=== PATIENT | male | born 1950 | race Caucasian/White ===

== ENCOUNTER 2017-09-29 14:01 | Inpatient (IN) ==
--- NOTE | 2017-09-29 14:14 | ED ---
HPI General Chief Complaint: Chest Pain Stated Complaint: Medical Time Seen by Provider: 09/29/17 14:07 Source: patient and EMS Mode of arrival: EMS Limitations: no limitations History of Present Illness HPI narrative: 66-year-old male patient with history of hypertension, CAD status post CABG, comes here from [place] currently at a [employer] race, started having chest pains about half an hour prior to arrival, states that he was 7 out of 10, but states that is now a 2 out of 10. He states is substernal, pressure, denies any nausea, shortness of breath, or other symptoms. Complete Quality Measures for STEMI Alert Patients Related Data Home Medications Medication Instructions Recorded Confirmed albiglutide [Tanzeum] 50 mg SUB-Q Q7D 09/29/17 09/29/17 aspirin 81 mg PO DAILY 09/29/17 09/29/17 insulin glargine [Toujeo Max 24 units SUB-Q DAILY 09/29/17 09/29/17 SoloStar] metoprolol tartrate 100 mg PO DAILY 09/29/17 09/29/17 pioglitazone 15 mg PO DAILY 09/29/17 09/29/17 Allergies Allergy/AdvReac Type Severity Reaction Status Date / Time No Known Allergies Allergy Unverified 09/29/17 14:08 Review of Systems Except as stated in HPI: all other systems reviewed are negative [facility] Medical History Medical History Coronary artery disease (Acute) Diabetes (Acute) High cholesterol (Acute) Surgical History Surgical History Coronary angioplasty status (Acute) Hx of cardiac cath (Acute) Social History Social History Substance History: No History of Abuse Second Hand Smoke Exposure: No Smoking Status: Never smoker Tobacco Type: Cigarettes How Often Do You Have a Drink Containing Alcohol: 2 to 4 times a month Recent Travel in [facility] within the Last 8 Weeks: No Recent Out of Country Travel within the Last 8 Weeks: No Immunization History Tetanus Immunization: <5 Years Hx Influenza Vaccine This Season: Yes Exam Narrative Exam Narrative: GENERAL: Well-developed elderly white male patient currently and moderate distress. Awake and oriented 3. SKIN: Focused skin assessment: Diaphoretic. HEAD: Atraumatic. Normocephalic. EYES: Pupils equal and round. No scleral icterus. No injection or drainage. ENT: No nasal bleeding or discharge. Mucous membranes pink and moist. NECK: Trachea midline. No JVD. Supple. CARDIOVASCULAR: Regular rate and rhythm. No murmur appreciated. RESPIRATORY: No accessory muscle use. Clear to auscultation. Breath sounds equal bilaterally. GASTROINTESTINAL: Abdomen soft, non-tender, nondistended. Hepatic and splenic margins not palpable. MUSCULOSKELETAL: No obvious deformities. No clubbing. No cyanosis. No edema. NEUROLOGICAL: Awake and alert. No obvious cranial nerve deficits. Motor grossly within normal limits. Normal speech. PSYCHIATRIC: Appropriate mood and affect; insight and judgment normal. Course Hospital Course: Initial EKG shows nonspecific ST elevations in the inferior leads concerning for an underlying cardiac issue, patient has extensive cardiac history. Case was discussed with Dr. Mckeon who saw the patient in the ER, patient's troponin initially was negative. His BUN and creatinine is quite elevated. He has no known history of kidney problems. At this point, Dr. Mckeon has suggested medical admission, started the patient on heparin, Plavix, patient has had aspirin and nitroglycerin as well as morphine in the ER. Case has been discussed with Dr. Seay for admission. Initial Documented Vital Signs Pulse Rate 83 09/29/17 14:02 Respiratory Rate 18 09/29/17 14:02 Blood Pressure 139/71 09/29/17 14:02 Pulse Oximetry 98 09/29/17 14:02 Last Documented Vital Signs Pulse Rate 59 L 09/29/17 15:59 Respiratory Rate 18 09/29/17 15:59 Blood Pressure 138/71 09/29/17 15:59 Pulse Oximetry 95 09/29/17 15:59 Medical Decision Making Differential Diagnosis Differential Diagnosis: ACS versus dehydration versus dysrhythmias versus electrolyte abnormalities Lab Data Result diagrams: 09/29/17 14:19 09/29/17 14:19 Lab Results 09/29/17 09/29/17 09/29/17 Range/Units 14:19 14:19 14:19 WBC 11.2 H (4.0-11.0) th/mm3 RBC 4.43 L (4.50-5.90) mil/mm3 Hgb 13.7 (13.0-17.0) gm/dL Hct 40.5 (39.0-51.0) % MCV 91.6 (80.0-100.0) fL MCH 30.9 (27.0-34.0) pg MCHC 33.8 (32.0-36.0) % RDW 13.4 (11.6-17.2) % Plt Count 283 (150-450) th/mm3 MPV 8.0 (7.0-11.0) fL Neut % (Auto) 79.5 H (16.0-70.0) % Lymph % (Auto) 11.3 (9.0-44.0) % Villalba % (Auto) 6.5 (0.0-8.0) % Eos % (Auto) 2.0 (0.0-4.0) % Baso % (Auto) 0.7 (0.0-2.0) % Neut # (Auto) 8.9 H (1.8-7.7) th/mm3 Lymph # (Auto) 1.3 (1.0-4.8) th/mm3 Villalba # (Auto) 0.7 (0.0-0.9) th/mm3 Eos # (Auto) 0.2 (0.0-0.4) th/mm3 Baso # (Auto) 0.1 (0.0-0.2) th/mm3 WBC Differential . Differential Comment Auto diff final PT 11.3 (9.8-11.6) sec INR 1.1 Ratio APTT 21.1 L (24.3-30.1) sec Sodium 139 (136-145) meq/L Potassium 4.5 (3.5-5.1) meq/L Chloride 101 (98-107) meq/L Carbon Dioxide 29.4 (21.0-32.0) meq/L Anion Gap 9 (5-15) meq/L BUN 45 H (7-18) mg/dL Creatinine 2.64 H (0.60-1.30) mg/dL Estimated GFR 24 L (>89) mL/min Random Glucose 249 H (74-106) mg/dL Calcium 9.6 (8.5-10.1) mg/dL Total Bilirubin 0.3 (0.2-1.0) mg/dL AST 21 (15-37) U/L ALT 31 (12-78) U/L Alkaline Phosphatase 67 (45-117) U/L Troponin I Less than 0.02 L (0.02-0.05) ng/mL Total Protein 7.5 (6.4-8.2) g/dL Albumin 4.2 (3.4-5.0) g/dL Imaging Data Radiologist's impression: Chest X-Ray 09/29/17 14:11 CONCLUSION: No acute cardiopulmonary disease. Discharge Plan Discharge Disposition Patient Disposition: 30 Still Patient Discharge Condition Condition: Good Discharge Details Anticipated Discharge Date: 09/29/17 Diagnosis: Unstable angina pectoris Physicians Team ED Provider: David Humphrey Primary Care Provider: Primary Care Maria Del Rosario Mcgowan Rxs /Orders / Referrals /Forms Prescriptions: Continue aspirin 81 mg Tablet,Chewable 81 mg PO DAILY RF: 0 Discontinued losartan-hydrochlorothiazide 100-25 mg Tablet 1 tab PO DAILY RF: 0 metformin 1,000 mg Tablet Extended Release 24hr 1,000 mg PO BID RF: 0 No Action pioglitazone 15 mg Tablet 15 mg PO DAILY RF: 0 metoprolol tartrate 100 mg Tablet 100 mg PO DAILY RF: 0 albiglutide [Tanzeum] 50 mg/0.5 mL Pen Injector 50 mg SUB-Q Q7D RF: 0 insulin glargine [Toujeo Max SoloStar] 300 unit/mL (3 mL) Insulin Pen 24 units Sub-Q DAILY RF: 0 Discharge Instructions Patient Printed Instructions: Chest Pain (ED), Heart Catheterization (DC) Discharge Interventions Interventions: Vital Signs Last Done: 09/29/17 14:07 Status ED Status: Admitted Patient
[2017-09-29 14:33] LABS: Baso # (Auto) 0.1 th/mm3 (0.0-0.2); Baso % (Auto) 0.7 % (0.0-2.0); Eos # (Auto) 0.2 th/mm3 (0.0-0.4); Hematocrit 40.5 % (39.0-51.0); Hemoglobin 13.7 gm/dL (13.0-17.0); Lymph # (Auto) 1.3 th/mm3 (1.0-4.8); Lymph % (Auto) 11.3 % (9.0-44.0); Mean Corpuscular HGB Conc 33.8 % (32.0-36.0); Mean Corpuscular Hemoglobin 30.9 pg (27.0-34.0); Mean Corpuscular Volume 91.6 fL (80.0-100.0); Mono # (Auto) 0.7 th/mm3 (0.0-0.9); Mono % (Auto) 6.5 % (0.0-8.0); Neut # (Auto) 8.9 th/mm3 (1.8-7.7); Neut % (Auto) 79.5 % (16.0-70.0); Platelet Count 283 th/mm3 (150-450); Red Blood Count 4.43 mil/mm3 (4.50-5.90); Red Cell Distribution Width 13.4 % (11.6-17.2); White Blood Count 11.2 th/mm3 (4.0-11.0)
[2017-09-29] MEDS ORDERED: Morphine Inj 4 MG/ML Vial IV.PUSH ONE (14:50)
[2017-09-29 14:51] LABS: Activated Partial Thrombo Time 21.1 sec (24.3-30.1); INR 1.1 Ratio; Prothrombin Time 11.3 sec (9.8-11.6)
[2017-09-29 14:52] LABS: Alanine Aminotransferase 31 U/L (12-78); Albumin 4.2 g/dL (3.4-5.0); Anion Gap 9 meq/L (5-15); Aspartate Aminotransferase 21 U/L (15-37); Blood Urea Nitrogen 45 mg/dL (7-18); Calcium 9.6 mg/dL (8.5-10.1); Carbon Dioxide 29.4 meq/L (21.0-32.0); Chloride 101 meq/L (98-107); Glomerular Filtration Rate 24 mL/min (>89); Glucose,Random 249 mg/dL (74-106); Potassium 4.5 meq/L (3.5-5.1); Sodium 139 meq/L (136-145)
[2017-09-29 14:56] LABS: Alkaline Phosphatase 67 U/L (45-117); Total Protein 7.5 g/dL (6.4-8.2)
--- NOTE | 2017-09-29 14:59 | XR ---
EXAM DATE: 09/29/2017 2:34 PM EDT AGE/SEX: 66 years / Male INDICATIONS: Midline chest pain. CLINICAL DATA: This is the patient's initial encounter. Patient reports that signs and symptoms have been present for 1 day and indicates a pain score of 4/10. MEDICAL/SURGICAL HISTORY: None. CABG. Cardiac stents. COMPARISON: POI, XR CHEST PA AND LAT, 12/05/2016. . FINDINGS: A single AP view of the chest demonstrates the lungs to be symmetrically aerated without evidence of mass, infiltrate or effusion. The cardiomediastinal contours are unremarkable. Osseous structures a re intact. The patient is again noted be status post median sternotomy for bypass grafting procedure . CONCLUSION: No acute cardiopulmonary disease. Electronically signed by: Sarath Grayson MD 09/29/2017 2:58 PM EDT
[2017-09-29] MEDS ORDERED: Heparin 10,000 UNITS/10 ML Vial (for IV use) ONE (15:45)
[2017-09-29] MEDS ORDERED: Heparin 10,000 UNITS/10 ML Vial (for IV use) IV.PUSH STA (15:49)
--- NOTE | 2017-09-29 15:52 | MB ---
cc: Jarrett Mckeon MD DATE: 09/29/2017 INDICATION FOR CONSULTATION: Unstable angina. HISTORY OF PRESENT ILLNESS: This is a very nice 66-year-old gentleman who has a history of known coronary disease, prior 5-vessel bypass and multiple prior percutaneous interventions. He is visiting here from [place] for the [employer] race. He said he ate lunch, walked up a flight of stairs and then felt diaphoretic and a little bit dizzy. Developed a substernal chest pain rated about a 7/10 initially, but now down to maybe 1 or 2/10. Describes it as more of a broad sternal discomfort. He does not state that it is sharp or dull. It is not a pressure-like sensation, but he was diaphoretic and nauseous. Electrocardiogram did show some [address] elevation inferiorly. He apparently saw his primary care doctor not too long ago and states that he had a basic metabolic panel, at which time they his kidneys were mildly abnormal, but not severely so. He still has just a little bit of chest pain now, but looks much more comfortable than initially described. PAST MEDICAL HISTORY: Coronary artery disease with bypass surgery as mentioned above, diabetes, hyperlipidemia. PAST SURGICAL HISTORY: Multiple cardiac catheterizations and bypass. SOCIAL HISTORY: Remote tobacco use, remote alcohol use. FAMILY HISTORY: He denies any family history of early coronary disease or sudden cardiac . REVIEW OF SYSTEMS: A 12-point review of systems was performed, negative unless otherwise noted in history of present illness. PHYSICAL EXAMINATION: VITAL SIGNS: Pulse 83, blood pressure 139/71 mmHg. GENERAL: Alert and oriented x 3, in no acute distress. HEENT: Shows pupils reactive to light and accommodation. Extraocular movements intact. No elevation jugular venous distention. No thyromegaly. No lymphadenopathy. No carotid bruits. LUNGS: Clear to auscultation bilaterally. CARDIOVASCULAR: Regular rate and rhythm without murmurs, rubs or gallops. ABDOMEN: Nontender and nondistended with good bowel sounds. No hepatosplenomegaly. EXTREMITIES: Show no clubbing, cyanosis or edema. Good peripheral pulses. NEUROLOGIC: Cranial nerves intact. Motor and sensory grossly intact. LABORATORY DATA: WBC 11.2, hemoglobin is 13.7, platelet count is 283. INR is 1.1. Sodium 139, potassium 4.5, BUN 45, creatinine is 2.64. Troponins less than 0.02. ELECTROCARDIOGRAM: Sinus rhythm, [address] elevation inferiorly, otherwise no significant ischemic changes. ASSESSMENT: 1. Unstable angina. 2. History of coronary artery disease with bypass surgery. 3. Acute renal failure. 4. Diabetes. PLAN: The patient's symptoms are resolving. His initial troponin is negative. Electrocardiogram does not meet criteria for ST elevation myocardial infarction protocol. I had a lengthy discussion with the patient about potential options in consideration. Given his current status of his creatinine with the kidney function and the fact that he has unknown anatomy with 5 coronary bypass grafts and possible percutaneous intervention, the amount of contrast that would be necessary would likely exceed that of which he has kidneys would tolerate and he would ultimately end up on either short-term and potentially long-term dialysis. Obviously, he was not very interested in this potential outcome. What I explained to him is if his symptoms are improving, let us go ahead and try to anticoagulate him, get him on aspirin, get him on Plavix and a statin with beta tomasa therapy. He has got nitro paste already on. We will hold angiotensin converting enzyme inhibitor or angiotensin receptor tomasa due to his kidney function. He seems to be fairly well compensated right now from a cardiovascular perspective and hemodynamically stable. Hold any diuretics. May actually gently hydrate him and see how the kidneys do. We will strongly consider actually getting Nephrology involved since he said his kidneys were recently within normal limits and the potential that we may need to do a cardiac catheterization early next week, we really would like to see him optimized the best that we can. Lastly, I will get a 2D echocardiogram to evaluate LV function and valvular heart disease. If he rules out and no other high risk features, we may actually consider a stress test to determine severity and amount of ischemia before proceeding with any invasive strategy if his kidneys do not improve. MD GLORIA Kumar/MONA , 03:22 PM , 03:34 PM
[2017-09-29] MEDS: Heparin Drip 25,000 UNIT/250 ML BAG IV.CONT PRN (15:53)
[2017-09-29] MEDS ORDERED: Bisacodyl 10 MG Supp RECTAL PRN (16:07)
[2017-09-29] MEDS ORDERED: Dextrose 50% in Water 50 ML Vial IV.PUSH PRN (16:10)
[2017-09-29] MEDS ORDERED: Naloxone Inj 0.4 MG/ML Vial IV.PUSH PRN (16:27)
[2017-09-29] MEDS ORDERED: Morphine Inj 4 MG/ML Vial IV.PUSH PRN ×2 (16:27)
[2017-09-29] MEDS: Sodium Chloride 0.45 % Inj 1,000 ML IV.CONT SCH (18:01)
--- NOTE | 2017-09-29 18:19 | P.HP ---
History of Present Illness Service: [facility] Primary Care Physician: No Primary Care Physician Chief Complaint: Chest pain History of Present Illness: 66-year-old male with PMH significant for HTN, HLD, DM, CAD s/p CABG x5 vessels, and stenting who presents to the ER via [facility] with complaints of chest pain. Patient reports that he was working out on [place] earlier today when he began experiencing chest pain. Patient states that pain was located on the center of his chest nonradiating, rates it an 8/10, describes the pain as stabbing, he also experienced diaphoresis. He then when inside the building to cool off, however pain did not improved and [facility] was called. He was not given any nitro in rout as he was told his BP was too low. In [facility] patient also had nausea and vomited once. While in the ER he again had one episode of emesis. EKD done in the ER revealed nonspecific ST elevations in the inferior leads. Initial troponin was negative, hemodynamically stable on arrival with negative chest x-ray. His CMP did reveal an elevated BUN and creatinine at 2.64. Patient states that he recently moved to [place] from [place] about one year ago and has not established with a chestnut tanner. He does followup with [facility] as his primary and about 6 weeks ago was told that he had abnormal kidney function and had to stop taking Ibuprofen due to his kidneys. At the time of my examination patient is awake and alert and appears to be in no acute distress. He still continues to complain of mid- sternal chest pain and currently rates pain 8/10, nonradiating. He denies any additional nausea or vomiting, denies any SOB, cough, dizziness or lightheadedness. - Diagnosis (1) Unstable angina pectoris (2) JULIA (acute kidney injury) (3) CKD (chronic kidney disease) Inpatient Certification: I certify that the inpatient services were ordered in accordance with Medicare regulations governing the order. This includes certification that hospital inpatient services are reasonable and necessary and in the case of services not specified as inpatient-only under 42 CFR 419.22(n), that they are appropriately provided as inpatient services in accordance to with the 2-midnight benchmark under 43 CFR 412.3(e) Estimated Total Length of Stay (Days): 2 Plans for Post Hospital Care: Home [facility] - History History Provided By: Patient - Medical History Medical History: Medical History (Last Updated 09/29/17 @ 17:59 by Oziel Mcghee) Coronary artery disease Diabetes HTN (hypertension) High cholesterol Renal insufficiency - Surgical History Surgical History: Surgical History (Last Updated 09/29/17 @ 18:00 by Oziel Mcghee) Coronary angioplasty status H/O hernia repair Hx of cardiac cath Hx of tonsillectomy - Family History Family History: Family History (Last Updated 09/29/17 @ 18:01 by Oziel Mcghee) Other Family history of cardiac disorder - Tobacco History Second Hand Smoke Exposure: No Tobacco Use In Past 30 Days: No Smoking Status: Never smoker - Alcohol History How Often Do You Have a Drink Containing Alcohol: 2 to 4 times a month - Substance Use History Substance History: No History of Abuse - Travel History History of Recent Travel: No Recent Travel in the [place] Within the Last 8 Weeks: No Recent Travel Out of the Country Within the Last 8 Weeks: No - Immunization History Tetanus Immunization: <5 Years Hx Influenza Vaccine This Season: Yes Medications and Allergies Active Medications: Active Medications Al Hydroxide/Mg Hydroxide (Milk Of Magnesia Liq) 30 ml PO Q12H PRN PRN Reason: Mild Constipation Aspirin (Ecotrin) 81 mg PO DAILY LESLIE Bisacodyl (Dulcolax Supp) 10 mg RECTAL DAILY PRN PRN Reason: SEVERE CONSITIPATION Clopidogrel Bisulfate (Plavix) 75 mg PO DAILY LESLIE Dextrose (D50w Vial) 50 ml IV.PUSH UNSCH PRN PRN Reason: PER HYPOGLYCEMIA PROTOCOL Glucagon (Glucagon Inj) 1 mg OTHER PRN PRN PRN Reason: for Hypoglycemia Protocol Heparin Sodium/Dextrose (Heparin/D5w 25,000 U/250 Ml) 25,000 unit in 250 mls @ 10 mls/hr IV.CONT TITRATE PRN; Protocol PRN Reason: Per Protocol Last Admin: 09/29/17 15:53 Dose: 1,000 units/hr, 10 mls/hr Sodium Chloride (1/2 Normal Saline Inj) 1,000 mls @ 50 mls/hr IV.CONT .Q20H LESLIE Insulin Aspart (Novolog Insulin Correctional Sugar Inj) 0 unit SQ ACHS LESLIE; Protocol Lactulose (Lactulose Liq) 30 ml PO DAILY PRN PRN Reason: SEVERE CONSITIPATION Metoprolol Tartrate (Lopressor) 25 mg PO BID LESLIE Morphine Sulfate (Morphine Inj) 4 mg IV.PUSH Q3H PRN PRN Reason: PAIN 6-10;IF UNABLE TO TAKE PO Last Admin: 09/29/17 16:46 Dose: 4 mg Morphine Sulfate (Morphine Inj) 2 mg IV.PUSH Q3H PRN PRN Reason: PAIN 3-5; IF UABLE TO TAKE PO Naloxone HCl (Narcan Inj) 0.4 mg IV.PUSH UNSCH PRN PRN Reason: SEE LABEL COMMENTS Sennosides (Senokot) 17.2 mg PO Q12H PRN PRN Reason: Moderate Constipation Sodium Chloride (Ns Flush) 2 ml IV.FLUSH UNSCH PRN PRN Reason: FLUSH AFTER USING IV ACCESS Temazepam (Restoril) 15 mg PO HS PRN PRN Reason: INSOMNIA Allergies Allergy/AdvReac Type Severity Reaction Status Date / Time No Known Allergies Allergy Unverified 09/29/17 14:08 Home Medications Medication Instructions Recorded Confirmed Type albiglutide [Tanzeum] 50 mg SUB-Q Q7D 09/29/17 09/29/17 History aspirin 81 mg PO DAILY 09/29/17 09/29/17 History insulin glargine [Toujeo Max 24 units SUB-Q DAILY 09/29/17 09/29/17 History SoloStar] metoprolol tartrate 100 mg PO DAILY 09/29/17 09/29/17 History pioglitazone 15 mg PO DAILY 09/29/17 09/29/17 History Exam Vital signs: Vital Signs 09/29/17 14:02 09/29/17 14:07 09/29/17 14:11 Pulse Rate 83 78 Respiratory Rate 18 18 Blood Pressure 139/71 139/71 Pulse Oximetry 98 98 97 09/29/17 15:59 Pulse Rate 59 L Respiratory Rate 18 Blood Pressure 138/71 Pulse Oximetry 9 L Intake & Output 09/28/17 09/29/17 09/29/17 18:59 06:59 18:59 Weight 122.47 kg Narrative: GENERAL: Well developed, obese male, appears to be in no acute distress. SKIN: Warm and dry. HEAD: Atraumatic. Normocephalic. EYES: Pupils equal and round. No scleral icterus. No injection or drainage. ENT: No nasal bleeding or discharge. Mucous membranes pink and moist. NECK: Trachea midline. No JVD. CARDIOVASCULAR: Regular rate and rhythm. RESPIRATORY: No accessory muscle use. Clear to auscultation. Breath sounds equal bilaterally. GASTROINTESTINAL: Abdomen soft, round/obese, non-tender. +bowel sounds. MUSCULOSKELETAL: Extremities without clubbing, cyanosis, or edema. No obvious deformities. NEUROLOGICAL: Awake and alert, oriented x3. No obvious cranial nerve deficits. Motor grossly within normal limits. Five out of 5 muscle strength in the arms and legs. Normal speech. PSYCHIATRIC: Appropriate mood and affect; insight and judgment normal. Results - Labs CBC & Chem 7: 09/29/17 14:19 09/29/17 14:19 Labs: Laboratory Results - last 24 hr 09/29/17 09/29/17 09/29/17 14:19 14:19 14:19 WBC 11.2 H RBC 4.43 L Hgb 13.7 Hct 40.5 MCV 91.6 MCH 30.9 MCHC 33.8 RDW 13.4 Plt Count 283 MPV 8.0 Neut % (Auto) 79.5 H Lymph % (Auto) 11.3 Forrest % (Auto) 6.5 Eos % (Auto) 2.0 Baso % (Auto) 0.7 Neut # (Auto) 8.9 H Lymph # (Auto) 1.3 Forrest # (Auto) 0.7 Eos # (Auto) 0.2 Baso # (Auto) 0.1 WBC Differential . Differential Comment Auto diff final PT 11.3 INR 1.1 APTT 21.1 L Sodium 139 Potassium 4.5 Chloride 101 Carbon Dioxide 29.4 Anion Gap 9 BUN 45 H Creatinine 2.64 H Estimated GFR 24 L Random Glucose 249 H Calcium 9.6 Total Bilirubin 0.3 AST 21 ALT 31 Alkaline Phosphatase 67 Total Creatine Kinase Troponin I Less than 0.02 L B-Natriuretic Peptide Total Protein 7.5 Albumin 4.2 09/29/17 09/29/17 14:19 14:19 WBC RBC Hgb Hct MCV MCH MCHC RDW Plt Count MPV Neut % (Auto) Lymph % (Auto) Forrest % (Auto) Eos % (Auto) Baso % (Auto) Neut # (Auto) Lymph # (Auto) Forrest # (Auto) Eos # (Auto) Baso # (Auto) WBC Differential Differential Comment PT INR APTT Sodium Potassium Chloride Carbon Dioxide Anion Gap BUN Creatinine Estimated GFR Random Glucose Calcium Total Bilirubin AST ALT Alkaline Phosphatase Total Creatine Kinase 92 Troponin I Cancelled B-Natriuretic Peptide 88 Total Protein Albumin - Imaging Impressions Chest X-Ray 09/29/17 14:11 CONCLUSION: No acute cardiopulmonary disease. Caprini VTE Risk Assessment Caprini VTE Risk Assessment: Moderate/High Risk (score >= 2) Caprini Risk Assessment Model: Point Value = 1 Point Value = 2 Point Value = 3 Point Value = 5 Age 41-60 Minor surgery BMI > 25 kg/m2 Swollen legs Varicose veins or History of unexplained or recurrent spontaneous Oral contraceptives or hormone replacement Sepsis (< 1 month) Serious lung disease, including pneumonia (< 1 month) Abnormal pulmonary function Acute myocardial infarction Congestive heart failure (< 1 month) History of inflammatory bowel disease Medical patient at bed rest Age 61-74 Arthroscopic surgery Major open surgery (> 45 min) Laparoscopic surgery (> 45 min) Malignancy Confined to bed (> 72 hours) Immobilizing plaster cast Central venous access Age >= 75 History of VTE Family history of VTE Factor V Leiden Prothrombin [id number] Lupus anticoagulant Anticardiolipin antibodies Elevated serum homocysteine Heparin-induced thrombocytopenia Other congenital or acquired thrombophilia Stroke (< 1 month) Elective arthroplasty Hip, pelvis, or leg fracture Acute spinal cord injury (< 1 month) Prophylaxis Regimen: Total Risk Factor Score Risk Level Prophylaxis Regimen 0-1 Low Early ambulation 2 Moderate Order ONE of the following: *Sequential Compression Device (SCD) *Heparin 5000 units SQ BID 3-4 Higher Order ONE of the following medications: *Heparin 5000 units SQ TID *Enoxaparin/Lovenox 40 mg SQ daily (WT < 150 kg, CrCl > 30 mL/min) *Enoxaparin/Lovenox 30 mg SQ daily (WT < 150 kg, CrCl > 10-29 mL/min) *Enoxaparin/Lovenox 30 mg SQ BID (WT < 150 kg, CrCl > 30 mL/min) AND/OR *Sequential Compression Device (SCD) 5 or more Highest Order ONE of the following medications: *Heparin 5000 units SQ TID (Preferred with Epidurals) *Enoxaparin/Lovenox 40 mg SQ daily (WT < 150 kg, CrCl > 30 mL/min) *Enoxaparin/Lovenox 30 mg SQ daily (WT < 150 kg, CrCl > 10-29 mL/min) *Enoxaparin/Lovenox 30 mg SQ BID (WT < 150 kg, CrCl > 30 mL/min) AND *Sequential Compression Device (SCD) Assessment and Plan - Assessment (1) Unstable angina pectoris Code(s): I20.0 - Unstable angina Status: Acute (2) JULIA (acute kidney injury) Code(s): N17.9 - Acute kidney failure, unspecified Status: Acute (3) CKD (chronic kidney disease) Code(s): N18.9 - Chronic kidney disease, unspecified Status: Acute - Plan 66-year-old male with PMH significant for HTN, HLD, DM, CAD s/p CABG x5 vessels, and stenting who presents to the ER via [facility] with complaints of chest pain. Angina pectoris -EKG in ER with nonspecific ST elevations in inferior leads. Patient with Hx CABG and stenting in the past. -Initial troponin negative, chest x-ray negative - Nitro 1inch applied in ER, received Morphine 4mg IV, O2, - Cardiology consulted and has evaluated patient. Due to elevated creatinine anticoagulation with heparin gtt initiated, ASA, Plavix, Beta tomasa , Nitro, and Morphine. -Continue following serial troponin & EKG -Consult nephrology for elevated Creatinine - 2D echo ordered, cardiology considering possible stress test if renal function does not improve and cath can't be preformed - Still with chest pain, Niro paste increased to 1.5inches, PRN Morphine ? CKD with JULIA -Creatinine -Gentle hydration with 1/2 NS@ 50ml/hr, follow renal function - Check kidney US to evaluate for renal disease -Consult nephrology for further recommendations, appreciate assistance - Avoid nephrotoxins Diabetes melitis - ADA diet, accu-checks with ISS -NPO after MN DVT prophylaxis-Heparin gtt Discussed Condition With: Patient, and .
[2017-09-29] MEDS: Insulin NovoLOG Aspart Correctional Sugar Inj SQ SCH ×2 (18:33→21:30)
--- NOTE | 2017-09-29 18:51 | P.CONNP ---
<Kiki Post - Last Filed: 09/29/17 19:12> History of Present Illness Service: Nephrology Consult date: 09/29/17 Reason for Consult: JULIA Primary Care Provider: No Primary Care Physician Chief Complaint: Chest pain History of Present Illness: This is a 66 y/o male who developed chest pain while working today. He has a hx of DM II, HTN, and CAD s/p CABG x 5 and multiple PCIs/stent placements. He also carries a diagnosis of CKD. He and his family report that his PCP recently informed him he had decreased renal function but they are unable to recollect his creatinine or GFR. The patient reports using Motrin daily for years. His labs on arrival show creatinine of 2.64, GFR 45, BG 241. He was started on heparin gtt, given PO Plavix, and ASA after he was evaluated by cardiology. There was discussion about cardiac catheterization but apparently the patient declined. He is a full code, we were consulted for renal management. Review of Systems Constitutional: Reports excessive sweating Cardiovascular: Reports chest pain, Reports chest pain with activity, Reports excessive sweating, Reports shortness of breath, Denies leg swelling, Denies lightheadedness Respiratory: Reports shortness of breath Gastrointestinal: Denies abdominal pain PMFSH - History History Provided By: Patient - Medical History Medical History: Medical History (Last Updated 09/29/17 @ 17:59 by Oziel Mcghee) Coronary artery disease Diabetes HTN (hypertension) High cholesterol Renal insufficiency - Surgical History Surgical History: Surgical History (Last Updated 09/29/17 @ 18:00 by Oziel Mcghee) Coronary angioplasty status H/O hernia repair Hx of cardiac cath Hx of tonsillectomy - Family History Family History: Family History (Last Updated 09/29/17 @ 18:01 by Oziel Mcghee) Other Family history of cardiac disorder - Tobacco History Second Hand Smoke Exposure: No Tobacco Use In Past 30 Days: No Smoking Status: Never smoker - Alcohol History How Often Do You Have a Drink Containing Alcohol: 2 to 4 times a month - Substance Use History Substance History: No History of Abuse - Travel History History of Recent Travel: No Recent Travel in the [place] Within the Last 8 Weeks: No Recent Travel Out of the Country Within the Last 8 Weeks: No - Immunization History Tetanus Immunization: <5 Years Hx Influenza Vaccine This Season: Yes Medications and Allergies Allergies Allergy/AdvReac Type Severity Reaction Status Date / Time No Known Allergies Allergy Unverified 09/29/17 14:08 Home Medications Medication Instructions Recorded Confirmed Type albiglutide [Tanzeum] 50 mg SUB-Q Q7D 09/29/17 09/29/17 History aspirin 81 mg PO DAILY 09/29/17 09/29/17 History insulin glargine [Toujeo Max 24 units SUB-Q DAILY 09/29/17 09/29/17 History SoloStar] metoprolol tartrate 100 mg PO DAILY 09/29/17 09/29/17 History pioglitazone 15 mg PO DAILY 09/29/17 09/29/17 History Active Medications: Active Medications Al Hydroxide/Mg Hydroxide (Milk Of Magnesia Liq) 30 ml PO Q12H PRN PRN Reason: Mild Constipation Aspirin (Ecotrin) 81 mg PO DAILY [facility] Bisacodyl (Dulcolax Supp) 10 mg RECTAL DAILY PRN PRN Reason: SEVERE CONSITIPATION Clopidogrel Bisulfate (Plavix) 75 mg PO DAILY [facility] Dextrose (D50w Vial) 50 ml IV.PUSH UNSCH PRN PRN Reason: PER HYPOGLYCEMIA PROTOCOL Glucagon (Glucagon Inj) 1 mg OTHER PRN PRN PRN Reason: for Hypoglycemia Protocol Heparin Sodium/Dextrose (Heparin/D5w 25,000 U/250 Ml) 25,000 unit in 250 mls @ 10 mls/hr IV.CONT TITRATE PRN; Protocol PRN Reason: Per Protocol Last Admin: 09/29/17 15:53 Dose: 1,000 units/hr, 10 mls/hr Sodium Chloride (1/2 Normal Saline Inj) 1,000 mls @ 50 mls/hr IV.CONT .Q20H [facility] Last Admin: 09/29/17 18:01 Dose: 50 mls/hr Insulin Aspart (Novolog Insulin Correctional Sugar Inj) 0 unit SQ ACHS [facility]; Protocol Last Admin: 09/29/17 18:33 Dose: 2 unit Lactulose (Lactulose Liq) 30 ml PO DAILY PRN PRN Reason: SEVERE CONSITIPATION Metoprolol Tartrate (Lopressor) 25 mg PO BID [facility] Morphine Sulfate (Morphine Inj) 4 mg IV.PUSH Q3H PRN PRN Reason: PAIN 6-10;IF UNABLE TO TAKE PO Last Admin: 09/29/17 16:46 Dose: 4 mg Morphine Sulfate (Morphine Inj) 2 mg IV.PUSH Q3H PRN PRN Reason: PAIN 3-5; IF UABLE TO TAKE PO Naloxone HCl (Narcan Inj) 0.4 mg IV.PUSH UNSCH PRN PRN Reason: SEE LABEL COMMENTS Nitroglycerin (Nitro-Bid 2% Oint) 1.5 inch TOPICAL Q6HR [facility] Sennosides (Senokot) 17.2 mg PO Q12H PRN PRN Reason: Moderate Constipation Sodium Chloride (Ns Flush) 2 ml IV.FLUSH UNSCH PRN PRN Reason: FLUSH AFTER USING IV ACCESS Temazepam (Restoril) 15 mg PO HS PRN PRN Reason: INSOMNIA Exam Vital signs: Vital Signs 09/29/17 14:02 09/29/17 14:07 09/29/17 14:11 Pulse Rate 83 78 Respiratory Rate 18 18 Blood Pressure 139/71 139/71 Pulse Oximetry 98 98 97 09/29/17 15:59 Pulse Rate 59 L Respiratory Rate 18 Blood Pressure 138/71 Pulse Oximetry 9 L Intake & Output 09/28/17 09/29/17 09/29/17 18:59 06:59 18:59 Weight 122.47 kg - Constitutional no acute distress, morbidly obese - Routine HEENT Exam Head: Present: normocephalic ENT: Present: mucous membranes moist - Routine Neck Exam Present: supple, full ROM. Absent: JVD - Routine Respiratory Exam Present: CTA bilaterally. Absent: accessory muscle use - Routine Cardiovascular Exam Present: RRR, S1, S2 - Routine Abdominal Exam Present: soft, normoactive bowel sounds - Routine Skin Exam Present: intact, dry, warm - Routine Neurological Exam Present: alert, oriented X3, CN II-XII intact, moving all extremities Results - Lab Results 09/29/17 14:19 09/29/17 14:19 Most recent lab results Calcium 9.6 mg/dL (8.5-10.1) 09/29/17 14:19 - Image Kidney/bladder ultrasound: pending Assessment and Plan - Assessment (1) JULIA (acute kidney injury) Code(s): N17.9 - Acute kidney failure, unspecified Status: Acute Plan: It is unclear what his baseline is. May have JULIA due to MO/NSTEMI He is refusing cardiac cath at this time. If he chooses to proceed, there is a risk he may develop worsening JULIA requiring dialysis. Obtain UA. Renal US taken, pending results Start 1/2 NS @ 50cc/hr. Repeat labs daily. Avoid nephrotoxic agents. (2) Unstable angina pectoris Code(s): I20.0 - Unstable angina Status: Acute Plan: Possible ST elevation on EKG. Cardiology has evaluated. ON heparin gtt, ASA, Plavix, statin. May need echo, stress test, or LHC. Appreciate recommendations. (3) DM II (diabetes mellitus, type II), controlled Code(s): E11.9 - Type 2 diabetes mellitus without complications Status: Acute Plan: Maintain glucose 140-180 mg/dL while hospitalized. He is on Metformin at home, that should not be continued at discharge. Other PO options are available. <Arjun Mann - Last Filed: 10/01/17 08:29> History of Present Illness Primary Care Provider: No Primary Care Physician [facility] - Medical History Medical History: Medical History (Last Updated 09/29/17 @ 17:59 by Oziel Mcghee) Coronary artery disease Diabetes HTN (hypertension) High cholesterol Renal insufficiency - Surgical History Surgical History: Surgical History (Last Updated 09/29/17 @ 18:00 by Oziel Mcghee) Coronary angioplasty status H/O hernia repair Hx of cardiac cath Hx of tonsillectomy - Family History Family History: Family History (Last Updated 09/29/17 @ 18:01 by Oziel Mcghee) Other Family history of cardiac disorder Medications and Allergies Active Medications: Active Medications Al Hydroxide/Mg Hydroxide (Milk Of Ludivina Eugene) 30 ml PO Q12H PRN PRN Reason: Mild Constipation Aspirin (Ecotrin) 81 mg PO DAILY [facility] Last Admin: 09/30/17 09:38 Dose: 81 mg Bisacodyl (Dulcolax Supp) 10 mg RECTAL DAILY PRN PRN Reason: SEVERE CONSITIPATION Clopidogrel Bisulfate (Plavix) 75 mg PO DAILY [facility] Last Admin: 09/30/17 09:38 Dose: 75 mg Dextrose (D50w Vial) 50 ml IV.PUSH UNSCH PRN PRN Reason: PER HYPOGLYCEMIA PROTOCOL Glucagon (Glucagon Inj) 1 mg OTHER PRN PRN PRN Reason: for Hypoglycemia Protocol Heparin Sodium/Dextrose (Heparin/D5w 25,000 U/250 Ml) 25,000 unit in 250 mls @ 10 mls/hr IV.CONT TITRATE PRN; Protocol PRN Reason: Per Protocol Last Admin: 09/30/17 22:07 Dose: 2,000 units/hr, 20 mls/hr Sodium Chloride (1/2 Normal Saline Inj) 1,000 mls @ 50 mls/hr IV.CONT .Q20H [facility] Last Admin: 09/30/17 12:08 Dose: 50 mls/hr Insulin Aspart (Novolog Insulin Correctional Sugar Inj) 0 unit SQ ACHS [facility]; Protocol Last Admin: 09/30/17 20:53 Dose: 4 unit Lactulose (Lactulose Liq) 30 ml PO DAILY PRN PRN Reason: SEVERE CONSITIPATION Metoprolol Tartrate (Lopressor) 25 mg PO BID [facility] Last Admin: 09/30/17 20:52 Dose: 25 mg Morphine Sulfate (Morphine Inj) 4 mg IV.PUSH Q3H PRN PRN Reason: PAIN 6-10;IF UNABLE TO TAKE PO Last Admin: 09/29/17 16:46 Dose: 4 mg Morphine Sulfate (Morphine Inj) 2 mg IV.PUSH Q3H PRN PRN Reason: PAIN 3-5; IF UABLE TO TAKE PO Naloxone HCl (Narcan Inj) 0.4 mg IV.PUSH UNSCH PRN PRN Reason: SEE LABEL COMMENTS Nitroglycerin (Nitro-Bid 2% Oint) 1.5 inch TOPICAL Q6HR [facility] Last Admin: 10/01/17 06:42 Dose: 1.5 inch Sennosides (Senokot) 17.2 mg PO Q12H PRN PRN Reason: Moderate Constipation Sodium Chloride (Ns Flush) 2 ml IV.FLUSH UNSCH PRN PRN Reason: FLUSH AFTER USING IV ACCESS Temazepam (Restoril) 15 mg PO HS PRN PRN Reason: INSOMNIA Exam Vital signs: Vital Signs 09/30/17 09:00 09/30/17 12:00 09/30/17 16:00 Temperature 98.2 F 97.9 F Pulse Rate 74 61 60 Respiratory Rate 20 20 Blood Pressure 104/51 L 115/65 Pulse Oximetry 96 96 09/30/17 20:00 09/30/17 22:19 10/01/17 00:00 Temperature 98.4 F 98.1 F Pulse Rate 93 H 71 Respiratory Rate 18 14 Blood Pressure 154/70 H 112/63 Pulse Oximetry 96 94 L 95 10/01/17 02:58 10/01/17 04:00 Temperature 98.1 F Pulse Rate 64 99 H Respiratory Rate 14 Blood Pressure 103/62 Pulse Oximetry 95 Intake & Output 09/30/17 10/01/17 10/01/17 18:59 06:59 18:59 Intake Total 1490 / 1490 250 / 250 Balance 1490 / 1490 250 / 250 Intake: IV 1250 / 1250 250 / 250 Heparin/D5W 25,000 U/250 mL 25, 250 / 250 250 / 250 000 unit In 250 ml @ 1,000 UNITS/HR 10 mls/hr IV.CONT TITRATE PRN Rx#:[id number] 1/2 Normal Saline Inj 1,000 ML 1000 / 1000 @ 50 mls/hr IV.CONT .Q20H [facility] Rx#:[id number] Oral 240 / 240 Other: Post Void Residual 300 # Voids 1 Date of Last Bowel Movement 09/29/17 Results - Lab Results 09/30/17 03:25 09/30/17 03:25 Most recent lab results Calcium 9.1 mg/dL (8.5-10.1) 09/30/17 03:25 Assessment and Plan - Assessment (1) JULIA (acute kidney injury) Code(s): N17.9 - Acute kidney failure, unspecified Status: Acute (2) Unstable angina pectoris Code(s): I20.0 - Unstable angina Status: Acute (3) DM II (diabetes mellitus, type II), controlled Code(s): E11.9 - Type 2 diabetes mellitus without complications Status: Acute - Attending Attestation patient was seen and examined. Agree with above assessment and plan. There is history of CKD, but baseline renal function is not known.
[2017-09-29 19:20] LABS: Bacteria,Urine Moderate /hpf; Bilirubin,Urine Negative (Negative); Clarity,Urine Hazy (Clear); Color,Urine Yellow (Yellw/Straw); Glucose,Urine (UA) 50 mg/dL (Negative); Hyaline Casts,Urine 26 /lpf (0-3); Leukocyte Esterase,Urine Negative (Negative); Mucus,Urine Few /lpf (Occasional); Nitrite,Urine Negative (Negative); Squamous Epithelial Cell,Urine 1 /hpf (0-5)
[2017-09-29] MEDS ORDERED: Temazepam 15 MG Capsule PO PRN (21:00)
[2017-09-29] MEDS: Metoprolol Tartrate 25 MG Tablet PO SCH (21:31)
[2017-09-29 21:58] LABS: Troponin I 4.27 ng/mL (0.02-0.05)
[2017-09-29 22:11] LABS: Creatine Kinase MB 25.5 ng/mL (0.5-3.6)
[2017-09-29 22:18] LABS: CKMB Percent 6.3 % (0.0-4.0)
[2017-09-30 03:51] LABS: Hematocrit 37.8 % (39.0-51.0); Mean Corpuscular HGB Conc 34.5 % (32.0-36.0); Mean Corpuscular Hemoglobin 31.5 pg (27.0-34.0); Mean Corpuscular Volume 91.3 fL (80.0-100.0); Mean Platelet Volume 8.2 fL (7.0-11.0); Platelet Count 258 th/mm3 (150-450); Red Blood Count 4.14 mil/mm3 (4.50-5.90); Red Cell Distribution Width 13.3 % (11.6-17.2); White Blood Count 8.8 th/mm3 (4.0-11.0)
[2017-09-30 04:11] LABS: Calcium 9.1 mg/dL (8.5-10.1); Potassium 3.7 meq/L (3.5-5.1)
[2017-09-30 04:22] LABS: Troponin I 27.4 ng/mL (0.02-0.05)
[2017-09-30 04:43] LABS: CKMB Percent 7.5 % (0.0-4.0); Creatine Kinase MB 70.1 ng/mL (0.5-3.6)
--- NOTE | 2017-09-30 07:58 | P.PNCA ---
Subjective Interval history: patient is currently chest pain free. chest pain stopped yesterday evening. rested comfortably overnight. Troponin levels rising. Physical Exam Vital signs: Vital Signs 09/29/17 14:02 09/29/17 14:07 09/29/17 14:11 Temperature Pulse Rate 83 78 Respiratory Rate 18 18 Blood Pressure 139/71 139/71 Pulse Oximetry 98 98 97 09/29/17 15:24 09/29/17 15:59 09/29/17 20:00 Temperature 98 F 98.0 F Pulse Rate 68 59 L 77 Respiratory Rate 18 18 18 Blood Pressure 118/57 L 138/71 107/61 Pulse Oximetry 94 L 9 L 94 L 09/29/17 22:07 09/30/17 00:00 09/30/17 00:53 Temperature 97.4 F L Pulse Rate 73 78 Respiratory Rate 16 18 Blood Pressure 116/66 119/62 Pulse Oximetry 92 L 96 09/30/17 04:00 Temperature 97.8 F Pulse Rate 78 Respiratory Rate 19 Blood Pressure 106/53 L Pulse Oximetry 94 L Intake & Output 09/29/17 09/30/17 09/30/17 18:59 06:59 18:59 Intake Total 720 / 720 Output Total 675 / 675 Balance 45 / 45 Weight 120.1 kg 121.3 kg Intake: Oral 720 / 720 Output: Urine 675 / 675 Other: Date of Last Bowel Movement 09/29/17 Weight On Admission 120.1 kg Narrative: GENERAL: SKIN: Warm and dry. HEAD: Normocephalic. EYES: No scleral icterus. No injection or drainage. NECK: Supple, trachea midline. No JVD or lymphadenopathy. CARDIOVASCULAR: Regular rate and rhythm without murmurs, gallops, or rubs. RESPIRATORY: Breath sounds equal bilaterally. No accessory muscle use. GASTROINTESTINAL: Abdomen soft, non-tender, nondistended. MUSCULOSKELETAL: No cyanosis, or edema. Assessment and Plan - Assessment (1) Unstable angina pectoris Code(s): I20.0 - Unstable angina Status: Acute (2) JULIA (acute kidney injury) Code(s): N17.9 - Acute kidney failure, unspecified Status: Acute - Plan 66 yo WM with CAD, prior 5 vessel CABG (1998), several cardiac catheterizations with stent placed (last intervention 2008), DMII, HTN and CKD who presents with acute chest pain. Mr. 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 NSTEMI- currently no chest pain. EKG nonischemic troponin levels increasing overnight 4.27 --> 27.4 repeat troponin level to be drawn this morning to monitor trend not a candidate for PCI at this time due to elevated creatinine. cont heparin, bb, asa, plavix and statin consider PCI and/or lexiscan when appropriate JULIA- nephrology following. ARB stopped, s/p IVF with improving renal function NSVT- 5 beats on telemetry yesterday 2D echo ordered
--- NOTE | 2017-09-30 08:34 | P.PNIM ---
Subjective Interval history: f/u; NSTEMI/ renal insufficiency in no acute distress. denies chest pain or sob. no new complaints. Physical Exam Vital signs: Vital Signs 09/29/17 14:02 09/29/17 14:07 09/29/17 14:11 Temperature Pulse Rate 83 78 Respiratory Rate 18 18 Blood Pressure 139/71 139/71 Pulse Oximetry 98 98 97 09/29/17 15:24 09/29/17 15:59 09/29/17 20:00 Temperature 98 F 98.0 F Pulse Rate 68 59 L 77 Respiratory Rate 18 18 18 Blood Pressure 118/57 L 138/71 107/61 Pulse Oximetry 94 L 9 L 94 L 09/29/17 22:07 09/30/17 00:00 09/30/17 00:53 Temperature 97.4 F L Pulse Rate 73 78 Respiratory Rate 16 18 Blood Pressure 116/66 119/62 Pulse Oximetry 92 L 96 09/30/17 04:00 Temperature 97.8 F Pulse Rate 78 Respiratory Rate 19 Blood Pressure 106/53 L Pulse Oximetry 94 L Intake & Output 09/29/17 09/30/17 09/30/17 18:59 06:59 18:59 Intake Total 720 / 720 Output Total 675 / 675 Balance 45 / 45 Weight 120.1 kg 121.3 kg Intake: Oral 720 / 720 Output: Urine 675 / 675 Other: Date of Last Bowel Movement 09/29/17 Weight On Admission 120.1 kg - Constitutional no acute distress - Routine Respiratory Exam Present: CTA bilaterally - Routine Cardiovascular Exam Present: RRR - Routine Abdominal Exam Present: soft - Routine Extremities Exam Comments: mild bilateral pedal edema. - Routine Neurological Exam Present: alert, oriented X3 Results - Labs CBC & Chem 7: 09/30/17 03:25 09/30/17 03:25 Laboratory Results - last 24 hr 09/29/17 09/29/17 09/29/17 14:19 14:19 14:19 WBC 11.2 H RBC 4.43 L Hgb 13.7 Hct 40.5 MCV 91.6 MCH 30.9 MCHC 33.8 RDW 13.4 Plt Count 283 MPV 8.0 Neut % (Auto) 79.5 H Lymph % (Auto) 11.3 [place] % (Auto) 6.5 Eos % (Auto) 2.0 Baso % (Auto) 0.7 Neut # (Auto) 8.9 H Lymph # (Auto) 1.3 [place] # (Auto) 0.7 Eos # (Auto) 0.2 Baso # (Auto) 0.1 WBC Differential . Differential Comment Auto diff final PT 11.3 INR 1.1 APTT 21.1 L Sodium 139 Potassium 4.5 Chloride 101 Carbon Dioxide 29.4 Anion Gap 9 BUN 45 H Creatinine 2.64 H Estimated GFR 24 L POC Glucose Random Glucose 249 H Calcium 9.6 Total Bilirubin 0.3 AST 21 ALT 31 Alkaline Phosphatase 67 Total Creatine Kinase CK-MB (CK-2) CK-MB (CK-2) % Troponin I Less than 0.02 L B-Natriuretic Peptide Total Protein 7.5 Albumin 4.2 Urine Color Urine Clarity Urine pH Ur Specific [place] Urine Protein Urine Glucose (UA) Urine Ketones Urine Occult Blood Urine Nitrate Urine Bilirubin Urine Urobilinogen Ur Leukocyte Esterase Urine RBC Urine WBC Ur Squamous Epith Cells Urine Bacteria Hyaline Casts Urine Mucus 09/29/17 09/29/17 09/29/17 14:19 14:19 18:04 WBC RBC Hgb Hct MCV MCH MCHC RDW Plt Count MPV Neut % (Auto) Lymph % (Auto) [place] % (Auto) Eos % (Auto) Baso % (Auto) Neut # (Auto) Lymph # (Auto) [place] # (Auto) Eos # (Auto) Baso # (Auto) WBC Differential Differential Comment PT INR APTT Sodium Potassium Chloride Carbon Dioxide Anion Gap BUN Creatinine Estimated GFR POC Glucose 164 H Random Glucose Calcium Total Bilirubin AST ALT Alkaline Phosphatase Total Creatine Kinase 92 CK-MB (CK-2) CK-MB (CK-2) % Troponin I Cancelled B-Natriuretic Peptide 88 Total Protein Albumin Urine Color Urine Clarity Urine pH Ur Specific [place] Urine Protein Urine Glucose (UA) Urine Ketones Urine Occult Blood Urine Nitrate Urine Bilirubin Urine Urobilinogen Ur Leukocyte Esterase Urine RBC Urine WBC Ur Squamous Epith Cells Urine Bacteria Hyaline Casts Urine Mucus 09/29/17 09/29/17 09/29/17 18:40 20:46 20:46 WBC RBC Hgb Hct MCV MCH MCHC RDW Plt Count MPV Neut % (Auto) Lymph % (Auto) [place] % (Auto) Eos % (Auto) Baso % (Auto) Neut # (Auto) Lymph # (Auto) [place] # (Auto) Eos # (Auto) Baso # (Auto) WBC Differential Differential Comment PT INR APTT 30.1 D Sodium Potassium Chloride Carbon Dioxide Anion Gap BUN Creatinine Estimated GFR POC Glucose Random Glucose Calcium Total Bilirubin AST ALT Alkaline Phosphatase Total Creatine Kinase 403 H CK-MB (CK-2) 25.5 H CK-MB (CK-2) % 6.3 H* Troponin I 4.27 H* B-Natriuretic Peptide Total Protein Albumin Urine Color Yellow Urine Clarity Hazy H Urine pH 5.0 Ur Specific [place] 1.020 Urine Protein 30 H Urine Glucose (UA) 50 Urine Ketones Trace Urine Occult Blood Negative Urine Nitrate Negative Urine Bilirubin Negative Urine Urobilinogen Less than 2 Ur Leukocyte Esterase Negative Urine RBC Less than 1 Urine WBC 2 Ur Squamous Epith Cells 1 Urine Bacteria Moderate H Hyaline Casts 26 Urine Mucus Few H 09/29/17 09/30/17 09/30/17 21:29 03:25 03:25 WBC 8.8 RBC 4.14 L Hgb 13.0 Hct 37.8 L MCV 91.3 MCH 31.5 MCHC 34.5 RDW 13.3 Plt Count 258 MPV 8.2 Neut % (Auto) Lymph % (Auto) [place] % (Auto) Eos % (Auto) Baso % (Auto) Neut # (Auto) Lymph # (Auto) [place] # (Auto) Eos # (Auto) Baso # (Auto) WBC Differential Differential Comment PT INR APTT Sodium 139 Potassium 3.7 D Chloride 102 Carbon Dioxide 30.0 Anion Gap 7 BUN 44 H Creatinine 1.86 H Estimated GFR 36 L POC Glucose 252 H Random Glucose 165 H Calcium 9.1 Total Bilirubin AST ALT Alkaline Phosphatase Total Creatine Kinase CK-MB (CK-2) CK-MB (CK-2) % Troponin I B-Natriuretic Peptide Total Protein Albumin Urine Color Urine Clarity Urine pH Ur Specific [place] Urine Protein Urine Glucose (UA) Urine Ketones Urine Occult Blood Urine Nitrate Urine Bilirubin Urine Urobilinogen Ur Leukocyte Esterase Urine RBC Urine WBC Ur Squamous Epith Cells Urine Bacteria Hyaline Casts Urine Mucus 09/30/17 09/30/17 03:25 03:25 WBC RBC Hgb Hct MCV MCH MCHC RDW Plt Count MPV Neut % (Auto) Lymph % (Auto) [place] % (Auto) Eos % (Auto) Baso % (Auto) Neut # (Auto) Lymph # (Auto) [place] # (Auto) Eos # (Auto) Baso # (Auto) WBC Differential Differential Comment PT INR APTT 30.8 H Sodium Potassium Chloride Carbon Dioxide Anion Gap BUN Creatinine Estimated GFR POC Glucose Random Glucose Calcium Total Bilirubin AST ALT Alkaline Phosphatase Total Creatine Kinase 937 H CK-MB (CK-2) 70.1 H CK-MB (CK-2) % 7.5 H* Troponin I 27.40 H* B-Natriuretic Peptide Total Protein Albumin Urine Color Urine Clarity Urine pH Ur Specific [place] Urine Protein Urine Glucose (UA) Urine Ketones Urine Occult Blood Urine Nitrate Urine Bilirubin Urine Urobilinogen Ur Leukocyte Esterase Urine RBC Urine WBC Ur Squamous Epith Cells Urine Bacteria Hyaline Casts Urine Mucus - Imaging Impressions Chest X-Ray 09/29/17 14:11 CONCLUSION: No acute cardiopulmonary disease. Assessment and Plan - Assessment (1) Unstable angina pectoris Code(s): I20.0 - Unstable angina Status: Acute (2) JULIA (acute kidney injury) Code(s): N17.9 - Acute kidney failure, unspecified Status: Acute (3) CKD (chronic kidney disease) Code(s): N18.9 - Chronic kidney disease, unspecified Status: Acute - Plan NSTEMI -currently chest pain free. - Cardiology consulted and has evaluated patient. Due to elevated creatinine anticoagulation with heparin gtt initiated, ASA, Plavix, Beta tomasa , Nitro, and Morphine. will check the lipid profile. - 2D echo ordered, cardiology considering possible stress test if renal function does not improve and cath can't be preformed renal insufficiency with unknown duration -Gentle hydration with 1/2 NS@ 50ml/hr, follow renal function - kidney US to evaluate for renal disease- pending. -Consult nephrology for further recommendations, appreciate assistance - Avoid nephrotoxins -monitor renal function Diabetes melitis - ADA diet, accu-checks with ISS DVT prophylaxis-Heparin gtt
[2017-09-30] MEDS: Metoprolol Tartrate 25 MG Tablet PO SCH ×2 (09:38→20:52)
[2017-09-30] MEDS: Insulin NovoLOG Aspart Correctional Sugar Inj SQ SCH ×4 (09:38→20:53)
[2017-09-30] MEDS: Heparin Drip 25,000 UNIT/250 ML BAG IV.CONT PRN ×2 (09:46→22:07)
[2017-09-30] MEDS: Sodium Chloride 0.45 % Inj 1,000 ML IV.CONT SCH (12:08)
--- NOTE | 2017-09-30 14:42 | ECG ---
Date Performed: 09/29/2017 Time Performed: 14:05:29 PTAGE: 66 years EKG: Sinus rhythm WITH SINUS ARRHYTHMIA LOW QRS VOLTAGE IN PRECORDIAL LEADS SEPTAL MYOCARDIAL INFARCTION ABNORMAL ECG NO PREVIOUS TRACING DOCTOR: Moi Hubbard Interpretating Date/Time 09/30/2017 14:42:03
--- NOTE | 2017-09-30 14:43 | ECG ---
Date Performed: 09/29/2017 Time Performed: 22:13:00 PTAGE: 66 years EKG: Sinus rhythm WITH MARKED SINUS ARRHYTHMIA LOW QRS VOLTAGE IN PRECORDIAL LEADS SEPTAL MYOCARDIAL INFARCTION , OF I NDETERMINATE AGE Since previous tracing, no significant change noted ABNORMAL ECG PREVIOUS TRACING : 09/29/2017 14.05 DOCTOR: Moi Hubbard Interpretating Date/Time 09/30/2017 14:42:14
--- NOTE | 2017-09-30 14:43 | ECG ---
Date Performed: 09/30/2017 Time Performed: 09:49:33 PTAGE: 66 years EKG: Sinus rhythm ST DEVIATION AND MODERATE T-WAVE ABNORMALITY, CONSIDER LATERAL ISCHEMIA Since previous tracing, no s ignificant change noted ABNORMAL ECG PREVIOUS TRACING : 09/29/2017 22.13 DOCTOR: Moi Hubbard Interpretating Date/Time 09/30/2017 14:42:24
--- NOTE | 2017-09-30 16:03 | P.PNNP ---
Subjective Interval history: Patient seen, alert, no SOB, feeling better, eating well. Physical Exam Vital signs: Vital Signs 09/29/17 20:00 09/29/17 22:07 09/30/17 00:00 Temperature 98.0 F 97.4 F L Pulse Rate 77 73 78 Respiratory Rate 18 16 18 Blood Pressure 107/61 116/66 119/62 Pulse Oximetry 94 L 92 L 09/30/17 00:53 09/30/17 04:00 09/30/17 09:00 Temperature 97.8 F Pulse Rate 78 74 Respiratory Rate 19 Blood Pressure 106/53 L Pulse Oximetry 96 94 L 09/30/17 12:00 Temperature Pulse Rate 75 Respiratory Rate Blood Pressure Pulse Oximetry Intake & Output 09/29/17 09/30/17 09/30/17 18:59 06:59 18:59 Intake Total 720 / 720 1250 / 1250 Output Total 675 / 675 Balance 45 / 45 1250 / 1250 Weight 120.1 kg 121.3 kg Intake: IV 1250 / 1250 Heparin/D5W 25,000 U/250 mL 25, 250 / 250 000 unit In 250 ml @ 1,000 UNITS/HR 10 mls/hr IV.CONT TITRATE PRN Rx#:[id number] 1/2 Normal Saline Inj 1,000 ML 1000 / 1000 @ 50 mls/hr IV.CONT .Q20H [facility] Rx#:[id number] Oral 720 / 720 Output: Urine 675 / 675 Other: Date of Last Bowel Movement 09/29/17 09/29/17 Weight On Admission 120.1 kg Narrative: GENERAL: SKIN: Warm and dry. HEAD: Normocephalic. EYES: No scleral icterus. No injection or drainage. NECK: Supple, trachea midline. No JVD or lymphadenopathy. CARDIOVASCULAR: Regular rate and rhythm without murmurs, gallops, or rubs. RESPIRATORY: Breath sounds equal bilaterally. No accessory muscle use. GASTROINTESTINAL: Abdomen soft, non-tender, nondistended. MUSCULOSKELETAL: No cyanosis, or edema. Assessment and Plan - Assessment (1) JULIA (acute kidney injury) Code(s): N17.9 - Acute kidney failure, unspecified Status: Acute Plan: It is unclear what his baseline is. May have JULIA due to [place]/NSTEMI He is refusing cardiac cath at this time. If he chooses to proceed, there is a risk he may develop worsening JULIA requiring dialysis. Obtain UA. Renal US taken, pending results Start 1/2 NS @ 50cc/hr. Creatinine improving. Avoid nephrotoxic agents. Creatinine is improving. Cardiology following, possible Cardiac Cath. (2) Unstable angina pectoris Code(s): I20.0 - Unstable angina Status: Acute Plan: Possible ST elevation on EKG. Cardiology has evaluated. ON heparin gtt, ASA, Plavix, statin. May need echo, stress test, or LHC. Appreciate recommendations. (3) DM II (diabetes mellitus, type II), controlled Code(s): E11.9 - Type 2 diabetes mellitus without complications Status: Acute Plan: Maintain glucose 140-180 mg/dL while hospitalized. He is on Metformin at home, that should not be continued at discharge. Other PO options are available.
--- NOTE | 2017-10-01 08:19 | P.PNCA ---
<Lety Sprague Crystal - Last Filed: 10/01/17 08:14> Subjective Interval history: resting comfortably. no chest pain or sob overnight. no events on telemetry Physical Exam Vital signs: Vital Signs 09/30/17 09:00 09/30/17 12:00 09/30/17 16:00 Temperature 98.2 F 97.9 F Pulse Rate 74 61 60 Respiratory Rate 20 20 Blood Pressure 104/51 L 115/65 Pulse Oximetry 96 96 09/30/17 20:00 09/30/17 22:19 10/01/17 00:00 Temperature 98.4 F 98.1 F Pulse Rate 93 H 71 Respiratory Rate 18 14 Blood Pressure 154/70 H 112/63 Pulse Oximetry 96 94 L 95 10/01/17 02:58 10/01/17 04:00 Temperature 98.1 F Pulse Rate 64 99 H Respiratory Rate 14 Blood Pressure 103/62 Pulse Oximetry 95 Intake & Output 09/30/17 10/01/17 10/01/17 18:59 06:59 18:59 Intake Total 1490 / 1490 250 / 250 Balance 1490 / 1490 250 / 250 Intake: IV 1250 / 1250 250 / 250 Heparin/D5W 25,000 U/250 mL 25, 250 / 250 250 / 250 000 unit In 250 ml @ 1,000 UNITS/HR 10 mls/hr IV.CONT TITRATE PRN Rx#:[id number] 1/2 Normal Saline Inj 1,000 ML 1000 / 1000 @ 50 mls/hr IV.CONT .Q20H [facility] Rx#:[id number] Oral 240 / 240 Other: Post Void Residual 300 # Voids 1 Date of Last Bowel Movement 09/29/17 Narrative: GENERAL: SKIN: Warm and dry. HEAD: Normocephalic. EYES: No scleral icterus. No injection or drainage. NECK: Supple, trachea midline. No JVD or lymphadenopathy. CARDIOVASCULAR: Regular rate and rhythm without murmurs, gallops, or rubs. RESPIRATORY: Breath sounds equal bilaterally. No accessory muscle use. GASTROINTESTINAL: Abdomen soft, non-tender, nondistended. MUSCULOSKELETAL: No cyanosis, or edema. Assessment and Plan - Assessment (1) Unstable angina pectoris Code(s): I20.0 - Unstable angina Status: Acute (2) JULIA (acute kidney injury) Code(s): N17.9 - Acute kidney failure, unspecified Status: Acute - Plan 66 yo WM with CAD, prior 5 vessel CABG (1998), several cardiac catheterizations with stent placed (last intervention 2008), DMII, HTN and CKD who presents with acute chest pain. Mr. Camacho is a resident of [place] but has not followed with a local lane attendant in >8 years. NSTEMI- currently no chest pain. EKG nonischemic troponin levels low leveling off 4.27 --> 27.4 -->26.80 cont heparin, bb, asa, plavix and statin will need ischemic workup before discharge. Monitoring JULIA. PCI vs. lexiscan. patient states he prefers not to have a cardiac catheterization JULIA- nephrology following. ARB stopped, s/p IVF with improving renal function NSVT- 5 beats on telemetry 09/29/17 2D echo ordered AM labs pending <Jarrett Mckeon - Last Filed: 10/01/17 10:47> Physical Exam Vital signs: Vital Signs 09/30/17 12:00 09/30/17 16:00 09/30/17 20:00 Temperature 98.2 F 97.9 F 98.4 F Pulse Rate 61 60 93 H Respiratory Rate 20 20 18 Blood Pressure 104/51 L 115/65 154/70 H Pulse Oximetry 96 96 96 09/30/17 22:19 10/01/17 00:00 10/01/17 02:58 Temperature 98.1 F 98.1 F Pulse Rate 71 64 Respiratory Rate 14 14 Blood Pressure 112/63 103/62 Pulse Oximetry 94 L 95 95 10/01/17 04:00 Temperature Pulse Rate 99 H Respiratory Rate Blood Pressure Pulse Oximetry Intake & Output 09/30/17 10/01/17 10/01/17 18:59 06:59 18:59 Intake Total 1490 / 1490 250 / 250 1000 / 1000 Balance 1490 / 1490 250 / 250 1000 / 1000 Intake: IV 1250 / 1250 250 / 250 1000 / 1000 Heparin/D5W 25,000 U/250 mL 25, 250 / 250 250 / 250 000 unit In 250 ml @ 1,000 UNITS/HR 10 mls/hr IV.CONT TITRATE PRN Rx#:[id number] 1/2 Normal Saline Inj 1,000 ML 1000 / 1000 1000 / 1000 @ 50 mls/hr IV.CONT .Q20H [facility] Rx#:[id number] Oral 240 / 240 Other: Post Void Residual 300 # Voids 1 Date of Last Bowel Movement 09/29/17 Assessment and Plan - Assessment (1) Unstable angina pectoris Code(s): I20.0 - Unstable angina Status: Acute (2) JULIA (acute kidney injury) Code(s): N17.9 - Acute kidney failure, unspecified Status: Acute - Attending Attestation NSTEMI ARF on CRI 2d echo pending Cr improving NPO p MN C tomorrow
--- NOTE | 2017-10-01 08:57 | P.PNIM ---
Subjective Interval history: f/u; NSTEMI looks comfortable. no chest pain or sob. no new complaints. Physical Exam Vital signs: Vital Signs 09/30/17 09:00 09/30/17 12:00 09/30/17 16:00 Temperature 98.2 F 97.9 F Pulse Rate 74 61 60 Respiratory Rate 20 20 Blood Pressure 104/51 L 115/65 Pulse Oximetry 96 96 09/30/17 20:00 09/30/17 22:19 10/01/17 00:00 Temperature 98.4 F 98.1 F Pulse Rate 93 H 71 Respiratory Rate 18 14 Blood Pressure 154/70 H 112/63 Pulse Oximetry 96 94 L 95 10/01/17 02:58 10/01/17 04:00 Temperature 98.1 F Pulse Rate 64 99 H Respiratory Rate 14 Blood Pressure 103/62 Pulse Oximetry 95 Intake & Output 09/30/17 10/01/17 10/01/17 18:59 06:59 18:59 Intake Total 1490 / 1490 250 / 250 Balance 1490 / 1490 250 / 250 Intake: IV 1250 / 1250 250 / 250 Heparin/D5W 25,000 U/250 mL 25, 250 / 250 250 / 250 000 unit In 250 ml @ 1,000 UNITS/HR 10 mls/hr IV.CONT TITRATE PRN Rx#:[id number] 1/2 Normal Saline Inj 1,000 ML 1000 / 1000 @ 50 mls/hr IV.CONT .Q20H [facility] Rx#:[id number] Oral 240 / 240 Other: Post Void Residual 300 # Voids 1 Date of Last Bowel Movement 09/29/17 - Constitutional no acute distress - Routine Respiratory Exam Present: CTA bilaterally - Routine Cardiovascular Exam Present: RRR - Routine Abdominal Exam Present: soft - Routine Extremities Exam Comments: no pedal edema. - Routine Neurological Exam Present: alert, oriented X3 Results - Labs CBC & Chem 7: 10/01/17 08:10 10/01/17 08:10 Laboratory Results - last 24 hr 09/30/17 09/30/17 09/30/17 09:36 10:40 10:40 APTT 58.8 H D POC Glucose 164 H Troponin I 26.80 H* 09/30/17 09/30/17 09/30/17 12:05 14:46 17:13 APTT 76.6 H D POC Glucose 134 H 119 H Troponin I 09/30/17 09/30/17 10/01/17 20:46 20:50 07:43 APTT 69.3 H POC Glucose 238 H 170 H Troponin I Assessment and Plan - Assessment (1) Unstable angina pectoris Code(s): I20.0 - Unstable angina Status: Acute (2) JULIA (acute kidney injury) Code(s): N17.9 - Acute kidney failure, unspecified Status: Acute (3) CKD (chronic kidney disease) Code(s): N18.9 - Chronic kidney disease, unspecified Status: Acute - Plan NSTEMI -currently chest pain free. - Cardiology consulted and has evaluated patient. Due to elevated creatinine anticoagulation with heparin gtt initiated, ASA, Plavix, Beta tomasa , Nitro, and Morphine. - 2D echo ordered, cardiology considering possible cardiac cath tomorrow if renal function continues to improve. renal insufficiency with unknown duration -Gentle hydration with 1/2 NS@ 50ml/hr, follow renal function - kidney US to evaluate for renal disease- pending. -Consulted nephrology for further recommendations, appreciate assistance - Avoid nephrotoxins -monitor renal function Diabetes melitis - ADA diet, accu-checks with IS check A1c. DVT prophylaxis-Heparin gtt Discharge Planning: when cardiac w/u completed and cleared by cardiology.
[2017-10-01] MEDS: Metoprolol Tartrate 25 MG Tablet PO SCH ×2 (09:23→21:07)
[2017-10-01] MEDS: Insulin NovoLOG Aspart Correctional Sugar Inj SQ SCH ×4 (09:24→21:12)
[2017-10-01 09:37] LABS: Hematocrit 38.2 % (39.0-51.0); Hemoglobin 13.1 gm/dL (13.0-17.0); Mean Corpuscular HGB Conc 34.3 % (32.0-36.0); Mean Corpuscular Hemoglobin 31.1 pg (27.0-34.0); Mean Corpuscular Volume 90.8 fL (80.0-100.0); Mean Platelet Volume 8.3 fL (7.0-11.0); Platelet Count 254 th/mm3 (150-450); Red Blood Count 4.21 mil/mm3 (4.50-5.90); Red Cell Distribution Width 13.1 % (11.6-17.2); White Blood Count 8.9 th/mm3 (4.0-11.0)
[2017-10-01 10:05] LABS: Calcium 9.3 mg/dL (8.5-10.1); Carbon Dioxide 25.4 meq/L (21.0-32.0); Potassium 3.7 meq/L (3.5-5.1)
[2017-10-01 10:08] LABS: Chol/HDL Ratio 3.17 Ratio; HDL Cholesterol 59.6 mg/dL (40.0-60.0)
[2017-10-01] MEDS: Sodium Chloride 0.45 % Inj 1,000 ML IV.CONT SCH (10:18)
[2017-10-01 10:56] LABS: Hemoglobin A1c 7.5 % (4.3-6.0)
[2017-10-01] MEDS: Heparin Drip 25,000 UNIT/250 ML BAG IV.CONT PRN (11:08)
--- NOTE | 2017-10-01 11:51 | P.PNNP ---
Subjective Interval history: Patient seen, alert, no SOB, feeling better, no chest pain. Physical Exam Vital signs: Vital Signs 09/30/17 12:00 09/30/17 16:00 09/30/17 20:00 Temperature 98.2 F 97.9 F 98.4 F Pulse Rate 61 60 93 H Respiratory Rate 20 20 18 Blood Pressure 104/51 L 115/65 154/70 H Pulse Oximetry 96 96 96 09/30/17 22:19 10/01/17 00:00 10/01/17 02:58 Temperature 98.1 F 98.1 F Pulse Rate 71 64 Respiratory Rate 14 14 Blood Pressure 112/63 103/62 Pulse Oximetry 94 L 95 95 10/01/17 04:00 10/01/17 09:00 Temperature Pulse Rate 99 H 88 Respiratory Rate Blood Pressure Pulse Oximetry Intake & Output 09/30/17 10/01/17 10/01/17 18:59 06:59 18:59 Intake Total 1490 / 1490 250 / 250 1250 / 1250 Balance 1490 / 1490 250 / 250 1250 / 1250 Intake: IV 1250 / 1250 250 / 250 1250 / 1250 Heparin/D5W 25,000 U/250 mL 25, 250 / 250 250 / 250 250 / 250 000 unit In 250 ml @ 1,000 UNITS/HR 10 mls/hr IV.CONT TITRATE PRN Rx#:[id number] 1/2 Normal Saline Inj 1,000 ML 1000 / 1000 1000 / 1000 @ 50 mls/hr IV.CONT .Q20H [facility] Rx#:[id number] Oral 240 / 240 Other: Post Void Residual 300 # Voids 1 Date of Last Bowel Movement 09/29/17 Narrative: GENERAL: SKIN: Warm and dry. HEAD: Normocephalic. EYES: No scleral icterus. No injection or drainage. NECK: Supple, trachea midline. No JVD or lymphadenopathy. CARDIOVASCULAR: Regular rate and rhythm without murmurs, gallops, or rubs. RESPIRATORY: Breath sounds equal bilaterally. No accessory muscle use. GASTROINTESTINAL: Abdomen soft, non-tender, nondistended. MUSCULOSKELETAL: No cyanosis, or edema. Assessment and Plan - Assessment (1) JULIA (acute kidney injury) Code(s): N17.9 - Acute kidney failure, unspecified Status: Acute Plan: It is unclear what his baseline is. May have JULIA due to [place]/NSTEMI He is refusing cardiac cath at this time. If he chooses to proceed, there is a risk he may develop worsening JULIA requiring dialysis. Obtain UA. Renal US taken, pending results Start 1/2 NS @ 50cc/hr. Creatinine improving. Avoid nephrotoxic agents. Creatinine is improving, now 1.4, Patient has JULIA. Cardiology following, possible Cardiac Cath. Dr. Mann will follow from tomorrow. (2) Unstable angina pectoris Code(s): I20.0 - Unstable angina Status: Acute Plan: Possible ST elevation on EKG. Cardiology has evaluated. ON heparin gtt, ASA, Plavix, statin. May need echo, stress test, or LHC. Appreciate recommendations. (3) DM II (diabetes mellitus, type II), controlled Code(s): E11.9 - Type 2 diabetes mellitus without complications Status: Acute Plan: Maintain glucose 140-180 mg/dL while hospitalized. He is on Metformin at home, that should not be continued at discharge. Other PO options are available.
--- NOTE | 2017-10-01 13:22 | ECHRPT ---
Indication: CHEST PAIN CONCLUSIONS Normal left ventricular size. Wall thickness is measured at the upper limits of normal. The left ventricular systolic function is grossly normal with an ejection fraction of 65-70%. The left atrial size is mildly dilated. Mildly dilated proximal ascending aorta. Trace mitral valve regurgitation. There is trace tricuspid valve regurgitation. The left ventricle is not well visualized. The left ventricular systolic function is normal with an estimated ejection fraction in the range of 55-60%. BP: / HR: Rhythm: Sinus MEASUREMENTS (Male / Female) Normal Values Technical Quality:Fair 2D ECHO LV Diastolic Diameter PLAX 5.1 cm 4.2 - 5.9 / 3.9 - 5.3 cm LV Systolic Diameter PLAX 3.4 cm IVS Diastolic Thickness 1.0 cm 0.6 - 1.0 / 0.6 - 0.9 cm LVPW Diastolic Thickness 1.0 cm 0.6 - 1.0 / 0.6 - 0.9 cm LV Relative Wall Thickness 0.4 RV Internal Dim ED PLAX 4.0 cm LVOT Diameter 2.0 cm Aortic Root Diameter 3.1 cm LA Systolic Diameter LX 4.0 cm 3.0 - 4.0 / 2.7 - 3.8 cm M-MODE AV Cusp Separation MM 1.9 cm DOPPLER AV Peak Velocity 103.0 cm/s AV Peak Gradient 4.2 mmHg AV Mean Gradient 3.0 mmHg AV Velocity Time Integral 18.4 cm LVOT Peak Velocity 66.9 cm/s LVOT Peak Gradient 1.8 mmHg LVOT Velocity Time Integral 15.1 cm AV Area Cont Eq vti 2.6 cm AV Area Cont Eq pk 2.0 cm Mitral E Point Velocity 43.0 cm/s Mitral A Point Velocity 65.2 cm/s Mitral E to A Ratio 0.7 LV E' Lateral Velocity 12.4 cm/s Mitral E to LV E' Lateral Ratio 3.5 LV E' Septal Velocity 8.3 cm/s Mitral E to LV E' Septal Ratio 5.2 TR Peak Velocity 124.0 cm/s TR Peak Gradient 6.2 mmHg Right Atrial Pressure 10.0 mmHg Pulmonary Artery Systolic Pressu 16.2 mmHg Right Ventricular Systolic Press 16.2 mmHg PV Peak Velocity 53.4 cm/s PV Peak Gradient 1.1 mmHg FINDINGS LEFT VENTRICLE Normal left ventricular size. Wall thickness is measured at the upper limits of normal. The left ventricular systolic function is grossly normal on limited imaging. The left ventricle is not well visualized. The left ventricular systolic function is normal with an estimated ejection fraction in the range of 55-60%. RIGHT VENTRICLE Normal right ventricular size and systolic function. LEFT ATRIUM The left atrial size is mildly dilated. RIGHT ATRIUM The right atrial size is normal. ATRIAL SEPTUM No atrial level shunt is demonstrated by color flow Doppler interrogation. AORTA Mildly dilated proximal ascending aorta. MITRAL VALVE Trace mitral valve regurgitation. AORTIC VALVE No aortic valve stenosis or regurgitation. TRICUSPID VALVE There is trace tricuspid valve regurgitation. PULMONARY VALVE No pulmonary valve regurgitation or stenosis. VESSELS The inferior vena cava was not well visualized. PERICARDIUM No pericardial effusion. Jarrett Mckeon MD, FACC (Electronically Signed) Final Date:01 October 2017 13:21
--- NOTE | 2017-10-01 14:39 | ECG ---
Date Performed: 10/01/2017 Time Performed: 11:41:55 PTAGE: 66 years EKG: Sinus rhythm LOW QRS VOLTAGE IN PRECORDIAL LEADS INCOMPLETE RIGHT BUNDLE BRANCH BLOCK SEPTAL MYOCARDIAL INFARCTIO N , PROBABLY OLD Since previous tracing, no significant change noted ABNORMAL ECG PREVIOUS TRACING : 09/30/2017 09.49 DOCTOR: Moi Hubbard Interpretating Date/Time 10/01/2017 14:37:45
[2017-10-02] MEDS: Heparin Drip 25,000 UNIT/250 ML BAG IV.CONT PRN (01:20)
[2017-10-02] MEDS ORDERED: Heparin/NS PF Inj 1,000 ML ONE ×2 (07:24→08:13)
[2017-10-02] MEDS ORDERED: fentaNYL Citrate Inj 100 MCG/2 ML Ampul ONE (07:25)
[2017-10-02] MEDS ORDERED: Heparin 10,000 UNITS/10 ML Vial (for IV use) ONE (07:25)
[2017-10-02] MEDS ORDERED: Adenosine Inj 6 MG/2 ML Syringe IV.PUSH ONE (08:20)
--- NOTE | 2017-10-02 09:04 | US ---
EXAM DATE: 09/29/2017 4:58 PM EDT AGE/SEX: 66 years / Male INDICATIONS: Obstruction. CLINICAL DATA: This is the patient's initial encounter. Patient reports that signs and symptoms have been present for 1 day and indicates a pain score of 0/10. MEDICAL/SURGICAL HISTORY: Hypercholesterolemia. Coronary artery disease. Diabetes. Angioplasty . Cardiac catheterization. COMPARISON: No prior exams available for comparison. MEASUREMENTS: Right Kidney:__12.6 x 5.6 x 5.6 cm Left Kidney:__11.3 x 4.9 x 5.9 cm FINDINGS: Right Kidney: Normal echotexture and cortical thickness. No mass or hydronephrosis. Left Kidney: Normal in size, shape and echogenicity with small apparent simple cyst measuring 1.6 x 1 .9 x 1.6 cm in the central kidney. There is no hydronephrosis or solid mass. Bladder: Within normal limits given the degree of distension. Other: Echogenic liver parenchyma characteristic of steatosis. CONCLUSION: 1. Left renal cyst. 2. Hepatic steatosis. Electronically signed by: Enrique Adams MD 10/02/2017 9:03 AM EDT
[2017-10-02] MEDS ORDERED: Misc Info for Pharmacy OTHER STA (09:19)
--- NOTE | 2017-10-02 09:20 | CATHPROC ---
[employer] HIS Report Study Information Study Number Admission Scheduled Start Study Start [id number] Sep 29 2017 4:18PM 10/02/2017 Oct 02 2017 7:24AM [place] Service Cath Endovascular Study Admit Source Facility Department Emergency department [facility] - Management Sme Physician and Clinical Staff Initial Jarrett Townsend Trim Attacher Deacon HaleyRN Recorder Anjelica Murphy,RT(R) Scrub Anisa Sharp ,RT(R) Procedures Performed Procedure Location (Site) Vessel Name AngioJet SVG-PDA Right Coronary AngioJet SVG-RCA Right Coronary Coronary Angiograms LCA Left Coronary Coronary Angiograms RCA Right Coronary Coronary Angiograms ACEVES-LAD Left Coronary Coronary Angiograms SVG-RCA Right Coronary Coronary Angiograms Gft. Stump 1 SVG Graft Coronary Angiograms Gft. Stump 2 SVG Graft Drug Eluting Inflatio SVG-PDA Right Coronary Drug Eluting Inflatio SVG-RCA Right Coronary L Heart Cath Pacemaker Temp Fem Vein (right) Femoral Vein Wire insertion Fem Art (right) Femoral Art Equipment Time Roofer [place] Description Size Mfg Part Number Used/Scraped COPILOT VALVE, BLEEDBACK [id number] 08:24 [employer] Used CONTROL *[id number] 08:26 [employer] WIRE, ASAHI PROWATER 180CM 180CM Used *[id number] 08:21 OROZCO CONTRERAS PACING CATHETER J CURVE FR 5 Used *[id number] TRANSDUCER, TRUWAVE [id number] 07:29 [employer]OZCO CONTRERAS * Used W/STOCKCOCK *[id number] 09:02 [employer] VASCADE, FR6 CLOSURE SYSTEM FR 6\7 Used *[id number] 09:03 [employer] VASCADE, FR6 CLOSURE SYSTEM FR 6\7 Used *[id number] [id number] *[id number] 534-520T *[id number] 534-572T *[phone] *[id number] 534-542T *[id number] [id number] 07:29 MEDLINE [employer] BLANKET,WARM AIR CCL * Used *[id number] 07:29 MEDLINE [employer] PACK, CCL CUSTOM * Used *[id number] 07:29 MEDLINE PACER PEN, SKIN DUAL W/ RULER * Used *[id number] [id number] 07:46 MEDTRONIC JR 4.0 DXTERITY CATHETER FR 5 Used *[id number] 08:43 MED[employer] STENT, 2.75 38MM DYLLAN 2.75 38MM [id number] Used [id number] 08:47 [employer]IC STENT, 3.0 15MM DYLLAN 3.0 15MM Used *1632133 [id number] 08:44 [employer] MEDICAL 30 MARIA DEL CARMEN INDEFLATOR Used *[id number] 08:12 [employer] MEDICAL SHEATH, FR6.5 PRELUDE 11CM FR 6.5 038ACT Used *9773671 [id number] 07:29 [employer] MEDICAL WIRE, 3MMJ .035 180CM 180CM Used *[id number] 07:29 NAMIC MANIFOLD, 4 PORT * Used *[id number] 07:29 NYCOMED OMNIPAQUE, 350 MG, 150ML 150ML [id number] Used CATHETER, FR4 SPIROFLEX [id number] 08:22 [employer] FR 4 Used ANGIOJET RX *[id number] 07:29 TERUMO MEDICAL SHEATH, FR5 TERUMO (10CM) FR 5 Used *[id number] [id number] 08:17 [employer] MEDICAL SHEATH, FR6 TERUMO (10CM) FR 6 Used *[id number] Equipment Model, Serial, Lot Number and Expiration Data Description Model Number Serial Number Lot Number Expiration Date CATHETER, FR4 SPIROFLEX [id number] 11-03-2018 ANGIOJET RX JR 4.0 DXTERITY CATHETER [id number] 01-19-2020 STENT, 2.75 38MM DYLLAN [id number] 02-10-2019 STENT, 3.0 15MM DYLLAN [id number] 04-11-2019 History: Current Medications Medication Dosage/Unit Route Frequency Last Date/Time Taken Beta Cliff ASA PLAVIX History: Risk Factors Family History of Hypertension Dyslipidemia Previous DC Premature CAD Yes Yes Yes Yes Prior Valve Prior PCI Prior PCIDate Prior CABG Prior CABGDate Surgery No Yes 03/06/2008 Yes 03/06/1998 Cerebrovascular Peripheral Artery Chronic Lung On Dialysis Diabetes Disease Disease Disease No No No No Yes Labs Hgb (g/dl) Hct (%) WBC (l/cumm) Platelets (thousands) 11.60-17.00 35.00-51.00 4.00-11.00 150.00-450.00 13.1 38.2 8.9 254 Glucose (mg/dl) BUN (mg/dl) Creatinine (mg/dl) BUN:Creatinine (1:x) 74.00-106.00 7.00-18.00 0.50-1.30 10.00-20.00 163 28 1.4 20 Na (meq/l) K (meq/l) 136.00-145.00 3.50-5.10 138 3.7 Troponin I (ng/ml) CPK-MB (ng/ML) 0.02-0.05 0.50-3.60 26.8 Not Drawn Medication Medication Total Dose (Bolus/Oral) Medication Total Dosage/Unit 1% XYLOCAINE 40 mL ADENOSINE 72 mcg ANGIOMAX BOLUS 18 mL BRILINTA 180 mg FENTANYL 50 mcg NTG (IC) 800 mcg VERSED 2 mg Medications (Bolus/Oral) Medication Time Given Dosage/Unit Administered By Reason VERSED 10/02/2017 7:47:17 AM 2 mg Deacon Haley 2 mg VERSED given in lab by Deacon Haley RN in Left Hand via Peripheral IV. Ordered by Kati Mckeon. FENTANYL 10/02/2017 7:48:05 AM 50 mcg Deacon Haley 50 mcg FENTANYL given in lab by Deacon Haley RN in Left Hand via Peripheral IV. Ordered by Adelaida Mckeon. 1% XYLOCAINE 10/02/2017 7:48:55 AM 20 mL Jarrett Mckeon 20 mL 1% XYLOCAINE given in lab by Jarrett Mckeon in Right Groin via Subcutaneous. 1% XYLOCAINE 10/02/2017 8:13:39 AM 20 mL Jarrett Mckeon 20 mL 1% XYLOCAINE given in lab by Jarrett Mckeon in Right Groin via Subcutaneous. ANGIOMAX BOLUS 10/02/2017 8:22:50 AM 18 mL Deacon Haley 18 mL ANGIOMAX BOLUS given in lab by Deacon Haley RN in Left Hand via Peripheral IV. Ordered by Jarrett Resendiz. NTG (IC) 10/02/2017 8:28:49 AM 200 mcg Jarrett Mckeon 200 mcg NTG (IC) given in lab by Jarrett Mckeon in Right Groin via Intra-coronary. ADENOSINE 10/02/2017 8:31:09 AM 18 mcg Jarrett Mckeon 18 mcg ADENOSINE given in lab by Jarrett Mckeon in Right Groin via Intra-coronary. ADENOSINE 10/02/2017 8:37:08 AM 18 mcg Mike, Jarrett 18 mcg ADENOSINE given in lab by Jarrett Mckeon in Right Groin via Intra-coronary. NTG (IC) 10/02/2017 8:38:36 AM 200 mcg Jarrett Mckeon 200 mcg NTG (IC) given in lab by Jarrett Mckeon in Right Groin via Intra-coronary. ADENOSINE 10/02/2017 8:44:44 AM 18 mcg Mike, Jarrett 18 mcg ADENOSINE given in lab by Jarrett Mckeon in Right Groin via Intra-coronary. NTG (IC) 10/02/2017 8:46:15 AM 200 mcg Jarrett Mckeon 200 mcg NTG (IC) given in lab by Jarrett Mckeon in Right Groin via Intra-coronary. ADENOSINE 10/02/2017 8:51:16 AM 18 mcg Mike, Jarrett 18 mcg ADENOSINE given in lab by Jarrett Mckeon in Right Groin via Intra-coronary. NTG (IC) 10/02/2017 8:51:26 AM 200 mcg Jarrett Mckeon 200 mcg NTG (IC) given in lab by Jarrett Mckeon in Right Groin via Intra-coronary. BRILINTA 10/02/2017 9:07:51 AM 180 mg Deacon Haley 180 mg BRILINTA given in lab by Deacon Haley RN via Oral. Ordered by Jarrett Mckeon. Medication (Drip) Medication Time Given Dosage/Unit Concentration/Unit Diluent (ml) Solution ANGIOMAX DRIP 10/02/2017 8:24:55 AM 1.754 mg/kg/hr 250 mg 50 NaCl .9 1.754 mg/kg/hr ANGIOMAX DRIP given in lab by Deacon Haley RN in Left Hand via Peripheral IV. Pump/D rip Flow = 42.4 ml/hr using NaCl .9 with a concentration of 250 mg in 50 ml. Ordered by Jarrett Mckeon. IV Solutions 10/02/2017 7:29:00 AM 50 mL (IV) NaCl .9 IV Solutions given in lab by Deacon Haley RN in Left Hand via Peripheral IV. Pump/Drip Flow using N aCl .9. Initial Case Assessment Circulatory - Right Pulses Dorsalis Pedis Femoral 2 2 Scale (0,1,2,3,4,d) Circulatory - Left Pulses Dorsalis Pedis Femoral 2 2 Scale (0,1,2,3,4,d) Chronological Log Time Study Chronological Log 7::44 Patient arrived via Bed. 7::48 Patient Name, D.O.B, / Armband Verified By R.N. 7:28:48 Consent signed by the physician and the patient and verified by the Management Sme staff. 7:28:49 Pre-op and post- op instructions given; patient acknowledges understanding of instructions . 7:28:50 Verbal Stimulation=2 Physical Stimulation=2 Airway=2 Respiration=2 TOTAL=8. (0=absent, 1=l imited, 2=present) 7:28:54 Patient has been NPO for More than 6Hrs. 7::55 Skin Breakdown- none per pt 7:28:55 Patient Warmer Placed on the Table. 7:28:57 Ruel Prominences Protected 7:28:57 IV Warmer Connected To Patient. 7:28:58 A # 20 IV was noted in the Antecubital (right). Grade = 0 7:28:59 A # 20 IV was noted in the Hand (left). Grade = 0 7:29:00 IV Solutions given in lab by Deacon Haley RN in Left Hand via Peripheral IV. Pump/Drip F low using NaCl .9. 7:29:00 History and physical on the chart or being dictated. Assessment: Initial Case 7:29:01 Right Pulses: West Ped=2, Femoral=2 Left Pulses: West Ped=2, Femoral=2 Vitals capture started with the following parameters, Patient=Adult, Interval=5 min, Initial Dcmquwba=967 mmHg, 7:29:18 Deflation Rate=5 mmHg, Cuff placed on Left Arm 7:29:52 HR=99 bpm, WHXJ=821/87 mmhg, SpO2=96 %, Resp=20 B/min, Pain=0, Tremayne=10, Dejesus=2 7:34:26 Reference ECG taken 7:34:57 HR=92 bpm, ZNLJ=946/75 mmhg, SpO2=94.0 %, Pain=0, Tremayne=10, Dejesus=2 7:36:11 MD paged 7:38:44 MD responded 7:39:33 Pressure channel 1 zeroed. 7:40:27 HR=96 bpm, KZBQ=990/82 mmhg, SpO2=97.0 %, Pain=0, Tremayne=10, Dejesus=2 7:44:57 HR=94 bpm, FZNK=794/75 mmhg, SpO2=92.0 %, Pain=0, Tremayne=10, Dejesus=2 7:45:19 MD arrived. Time Out. Correct patient, correct procedure, correct physician, labs, allergies, and equipment verified with geoscience laboratory technician 7:46:22 team present. Fire risk assesment completed (see hard stop sheet for coding). Time Out Concu rred by MD and individual staff in procedure. 7:46:28 Case Start 7:47:17 2 mg VERSED given in lab by Deacon Haley RN in Left Hand via Peripheral IV. Ordered by Jarrett eRsendiz. 7:48:05 50 mcg FENTANYL given in lab by Deacon Haley RN in Left Hand via Peripheral IV. Ordered by Jarrett Mckeon. 7:48:55 20 mL 1% XYLOCAINE given in lab by Jarrett Mckeon in Right Groin via Subcutaneous. 7:49:58 HR=95 bpm, ATVO=437/73 mmhg, SpO2=88.0 %, Pain=0, Tremayne=10, Dejesus=2 7:50:07 Access site was Right Femoral Artery. 7:50:17 A SHEATH, FR5 TERUMO (10CM) FR 5 was advanced into the Fem Art (right) using the Percutaneou s technique. A JL 4.0 INFINITI CATHETER FR 5 was advanced over a wire. OMNIPAQUE, 350 MG, 150ML 150ML was use d for 7:50:55 injections. After removing the current catheter a JL 5.0 INFINITI CATHETER FR 5 was advanced over a WIRE, 3M MJ .035 180CM 7:53:19 180CM. Recorded Pressure: Ao, HR=94, Condition=Condition 1 7:54:41 (Aorta) Ao 116/66/88 7:54:55 HR=95 bpm, SJGJ=205/74 mmhg, SpO2=93.0 %, Pain=0, Tremayne=10, Dejesus=2 7:55:10 The LCA was injected and visualized at various angles. OMNIPAQUE, 350 MG, 150ML 150ML used. After removing the current catheter a JR 4.0 DXTERITY CATHETER FR 5 was advanced over a WIRE, 3M MJ .035 180CM 7:57:09 180CM. 7:58:36 The RCA was injected and visualized at various angles. OMNIPAQUE, 350 MG, 150ML 150ML used. 7:59:13 The Gft. Stump 1 was injected and visualized at various angles. OMNIPAQUE, 350 MG, 150ML 150 ML used. 7:59:56 HR=95 bpm, EXVF=613/83 mmhg, SpO2=97 %, Resp=11 B/min, Pain=0, Tremayne=10, Dejesus=2 After removing the current catheter a ELANA INFINITI CATHETER FR 5 was advanced over a WIRE, 3MMJ .035 180CM 8:01:34 180CM. 8:03:18 The ACEVES-LAD was injected and visualized at various angles. OMNIPAQUE, 350 MG, 150ML 150ML u sed. After removing the current catheter a MPA-2 INFINITI CATHETER FR 5 was advanced over a WIRE, 3MM J .035 180CM 8:04:40 180CM. 8:04:59 HR=87 bpm, UYKO=345/68 mmhg, SpO2=98 %, Resp=20 B/min, Pain=0, Tremayne=10, Dejesus=2 8:06:20 The SVG-RCA was injected and visualized at various angles. OMNIPAQUE, 350 MG, 150ML 150ML us ed. After removing the current catheter a LCB INFINITI CATHETER FR 5 was advanced over a WIRE, 3MMJ .035 180CM 8:08:46 180CM. 8:09:30 The Gft. Stump 2 was injected and visualized at various angles. OMNIPAQUE, 350 MG, 150ML 150 ML used. 8:09:58 HR=89 bpm, ZIJZ=866/74 mmhg, SpO2=97.0 %, Resp=19 B/min, Pain=0, Tremayne=10, Dejesus=2 8:11:21 Catheter was removed A SHEATH, FR6.5 PRELUDE 11CM FR 6.5 was exchanged in the Fem Art (right). This was necessary in order to 8:11:23 accomodate a larger catheter. 8:13:39 20 mL 1% XYLOCAINE given in lab by Jarrett Mckeon in Right Groin via Subcutaneous. 8:14:05 Access site was Right Femoral Vein. 8:14:14 A SHEATH, FR5 TERUMO (10CM) FR 5 was advanced into the Fem Vein (right) using the Percutaneo us technique. 8:14:59 HR=89 bpm, ZNIU=690/75 mmhg, SpO2=98.0 %, Resp=20 B/min, Pain=0, Tremayne=10, Dejesus=2 A SHEATH, FR6 TERUMO (10CM) FR 6 was exchanged in the Fem Vein (right). This was necessary in or jorgito to 8:17:39 accomodate a larger catheter. 8:19:20 A PACING CATHETER J CURVE FR 5 was advanced to the right ventricle. Rate = 60, Output = 10, MA = 10. 8:19:56 HR=96 bpm, VAGM=955/75 mmhg, SpO2=98.0 %, Resp=20 B/min, Pain=0, Tremayne=10, Dejesus=2 8:20:57 Lead placement verified under fluoroscopy 8:22:50 18 mL ANGIOMAX BOLUS given in lab by Deacon Haley RN in Left Hand via Peripheral IV. Order ed by Jarrett Mckeon. A MPA-1 GUIDE CATHETER FR 6 was advanced over a wire. OMNIPAQUE, 350 MG, 150ML 150ML was used fo r 8:23:08 injections. 1.754 mg/kg/hr ANGIOMAX DRIP given in lab by Deacon Haley RN in Left Hand via Peripheral IV. P ump/Drip Flow = 8:24:55 42.4 ml/hr using NaCl .9 with a concentration of 250 mg in 50 ml. Ordered by Jarrett Mckeon. 8:25:01 HR=75 bpm, UHGO=362/78 mmhg, SpO2=97.0 %, Resp=20 B/min, Pain=0, Tremayne=10, Dejesus=2 8:25:23 A WIRE, LocalCirclesWATER 180CM 180CM was inserted via Fem Art (right). 8:28:49 200 mcg NTG (IC) given in lab by aJrrett Mckeon in Right Groin via Intra-coronary. 8:30:03 HR=90 bpm, JACY=203/74 mmhg, SpO2=97.0 %, Resp=17 B/min, Pain=0, Tremayne=10, Dejesus=2 8:31:09 18 mcg ADENOSINE given in lab by Jarrett Mckeon in Right Groin via Intra-coronary. 8:33:00 CATHETER, FR4 SPIROFLEX ANGIOJET RX FR 4 opened and placed on table Catheter was placed in the SVG-RCA over a WIRE, ASAHI PROWATER 180CM 180CM 8:33:01 Pass: ~PASS~, Time: 21 8:33:32 Angio-Jet in progress. 8:35:02 HR=88 bpm, AYOB=526/79 mmhg, SpO2=99.0 %, Resp=20 B/min, Pain=0, Tremayne=10, Dejesus=2 Catheter was placed in the SVG-RCA over a WIRE, [employer] PROWATER 180CM 180CM 8:35:05 Pass: ~PASS~, Time: 27 Catheter was placed in the SVG-PDA over a WIRE, ASAHI PROWATER 180CM 180CM 8:35:43 Pass: ~PASS~, Time: 22 8:36:24 Angio-jet removed and flushed 8:37:08 18 mcg ADENOSINE given in lab by Jarrett Mckeon in Right Groin via Intra-coronary. 8:38:36 200 mcg NTG (IC) given in lab by Jarrett Mckeon in Right Groin via Intra-coronary. 8:40:31 HR=89 bpm, ECVW=685/80 mmhg, SpO2=98.0 %, Resp=20 B/min, Pain=0, Tremayne=10, Dejesus=2 A STENT, 2.75 38MM DYLLAN 2.75 38MM was advanced through a MPA-1 GUIDE CATHETER FR 6 over a WIRE, [employer] 8:42:45 PROWATER 180CM 180CM. A STENT, 2.75 38MM DYLLAN 2.75 38MM was deployed using a 30 MARIA DEL CARMEN INDEFLATOR at 16 atmospheres for 1 2 seconds 8:43:42 in the SVG-PDA. 8:44:25 Delivery device removed 8:44:44 18 mcg ADENOSINE given in lab by Jarrett Mckeon in Right Groin via Intra-coronary. 8:45:34 HR=82 bpm, SFFH=948/80 mmhg, SpO2=99.0 %, Resp=20 B/min, Pain=0, Tremayne=10, Dejesus=2 8:46:15 200 mcg NTG (IC) given in lab by Jarrett Mckeon in Right Groin via Intra-coronary. A STENT, 3.0 15MM DYLLAN 3.0 15MM was advanced through a MPA-1 GUIDE CATHETER FR 6 over a WIRE, AHI 8:48:54 PROWATER 180CM 180CM. A STENT, 3.0 15MM DYLLAN 3.0 15MM was deployed using a 30 MARIA DEL CARMEN INDEFLATOR at 18 atmospheres for 12 seconds in 8:49:51 the SVG-RCA. 8:50:40 HR=88 bpm, WUJX=164/70 mmhg, SpO2=97.0 %, Resp=21 B/min, Pain=0, Tremayne=10, Dejesus=2 8:50:45 Delivery device removed 8:51:16 18 mcg ADENOSINE given in lab by Jarrett Mckeon in Right Groin via Intra-coronary. 8:51:26 200 mcg NTG (IC) given in lab by Jarrett Mckeon in Right Groin via Intra-coronary. 8:53:26 2.75 stent balloon reinsterted. 8:53:41 Re-inflated the stent balloon in the SVG-RCA to 18 MARIA DEL CARMEN for 9 seconds. 8:54:27 Delivery device removed 8:54:28 Wire removed 8:55:04 HR=80 bpm, TLDM=571/81 mmhg, SpO2=97.0 %, Resp=20 B/min, Pain=0, Tremayne=10, Dejesus=2 8:55:09 Catheter was removed 8:55:24 Temp pacer removed 8:56:25 Case End (Physician broke scrub) 9:00:03 HR=78 bpm, LRRG=081/79 mmhg, SpO2=98.0 %, Resp=19 B/min, Pain=0, Tremayne=10, Dejesus=2 9:01:55 VASCADE, FR6 CLOSURE SYSTEM FR 6\7 placement in the Fem Vein (right) 9:02:56 VASCADE, FR6 CLOSURE SYSTEM FR 6\7 placement in the Fem Art (right) 9:05:04 HR=75 bpm, MPKL=983/75 mmhg, SpO2=98.0 %, Resp=19 B/min, Pain=0, Tremayne=10, Dejesus=2 9:05:15 Sterile dressing applied to site 9:05:16 No case complications noted. 9:05:17 Cine recording checked. 9:05:20 Holding Area notified of successful intervention. 9:05:21 Bedside Report will be given. 9:05:22 Implantable Device card placed in patient's chart. 9:05:27 A Left Heart Cath was performed. 9:07:51 180 mg BRILINTA given in lab by Deacon Haley, RN via Oral. Ordered by Jarrett Mckeon. 9:10:07 HR=81 bpm, BVPP=577/72 mmhg, VkI5=820.0 %, Resp=16 B/min, Pain=0, Tremayne=10, Dejesus=2 9:15:00 Patient moved to stretcher 9:15:03 Vitals capture stopped. End Study - Contrast Media Used In Study Contrast Total Opened (mL) Total Used (mL) Total Wasted (mL) Omnipaque 150 100 50 End Study - Maximum Contrast Load Max Contrast Load (mL) 431.8 End Study - Radiation Exposure Fluoro Time (minutes) 13.5 End Study - Patient Disposition Complications Transferred To Interventional Outcome No Telemetry Bed successful
[2017-10-02] MEDS: Metoprolol Tartrate 25 MG Tablet PO SCH ×2 (09:49→21:11)
--- NOTE | 2017-10-02 10:14 | MA ---
cc: Jarrett Mckeon MD DATE: 10/02/2017 INDICATION: Non-ST elevation myocardial infarction. PROCEDURES PERFORMED: 1. Fluoroscopy with interpretation. 2. Coronary angiography. 3. Coronary artery bypass angiography. 4. Left heart catheterization. 5. Percutaneous coronary intervention of the saphenous vein graft to the right coronary artery with drug-eluting stent. 6. Temporary transvenous pacemaker. 7. Rheolytic thrombectomy of the saphenous vein graft to the right coronary artery. 8. Intracoronary administration of nitroglycerin and adenosine METHOD: Risks, benefits and alternatives discussed with the patient. The patient understood and consented to the procedure. The patient was brought into the catheterization lab, placed on the catheterization table. The right groin was prepped and draped in a sterile fashion. The right groin was anesthetized with 2% lidocaine. The right common femoral artery was cannulated and a 5-Guinean 11 cm sheath was placed without difficulty. LEFT HEART CATHETERIZATION: Intraventricular hemodynamics measured at 120/20 mmHg. CORONARY ANGIOGRAPHY: 1. Left main coronary artery has mild luminal irregularities. 2. Left anterior descending coronary artery is 100% occluded proximally. 3. The circumflex coronary has a ramus intermedius branch, which has mild luminal irregularities. There is a smaller subbranch that has an acute angulated takeoff and a 99% stenosis, but is small caliber size. It is stented and appears patent which actually crosses the bifurcation of the small subbranch. The circumflex is smaller caliber size widely patent. 4. Right coronary artery is occluded proximally. CORONARY BYPASS GRAFT ANGIOGRAPHY: 1. Left internal mammary to the left anterior descending coronary artery is patent. 2. Left anterior descending coronary artery proximal to the graft anastomosis has diffuse disease. There appears to be a diagonal branch that is subtotally occluded. The distal apical left anterior descending coronary artery has a 95% stenosis, but is very small caliber size and wraps around the inferoapex. 3. The saphenous vein graft to the right coronary artery has a 99% proximal stenosis with heavy thrombotic burden throughout the entire graft. There is a bifurcation of the posterior descending and posterolateral branches, which are patent. 4. Saphenous vein graft to ramus intermedius branch is occluded. Saphenous vein graft to the diagonal branch is occluded. TEMPORARY TRANSVENOUS PACEMAKER PLACEMENT: A 5-Guinean balloon tipped temporary transvenous pacemaker was advanced through a 6-Guinean sheath placed in the right femoral vein. Temporary pacing was confirmed and utilized throughout the procedure. PERCUTANEOUS INTERVENTION: Saphenous vein graft to the right coronary artery was selectively engaged with a multipurpose catheter. A 0.014 inch, 180 cm Prowater wire was advanced out to the distal posterior descending branch. Rheolytic thrombectomy was performed on 4 sequential passes through the vein graft to the right coronary artery with a 4-Guinean Spiroflex AngioJet catheter. Pacing was utilized during that portion of the procedure. Repeat angiography following administration of intracoronary adenosine and nitroglycerin revealed severe residual stenosis, but much improved thrombotic burden. A 2.75 x 38 mm RX Resolute Victor Hugo stent was advanced down to the distal vein graft and deployed just prior to the bifurcation. Repeat angiography showed no residual stenosis. A 3.0 x 15 mm RX Resolute Victor Hugo drug-eluting stent was advanced in the proximal vein graft and deployed. The ostium flared with stent balloon. Repeat angiography showed no residual stenosis, IVAN 3 flow. CONCLUSIONS: 1. Thrombotic subtotally occluded saphenous vein graft to the right coronary artery. 2. Successful rheolytic thrombectomy, endovascular stenting with drug-eluting stents to the saphenous vein graft to the right coronary artery. 3. Successful utilization of temporary transvenous pacemaker. 4. Severe 3-vessel levelock coronary artery disease. 5. 2/4 visualized grafts were widely patent. There were graft markers. The patient reports 5 total bypass grafts one may have been a jump graft not visualized that was occluded. 6. Normal left-sided filling pressure. PLAN: We are going to switch the patient from Plavix to Brilinta given his thrombotic mediated event on Plavix. We will continue aspirin, statin, beta tomasa and long-acting nitrate. Both groins were closed with a VASCADE device with good hemostasis. We may be able to potentially consider discharge later today. Jarrett Mckeon MD GLORIA/DL , 09:39 AM , 09:53 AM
[2017-10-02] MEDS ORDERED: Iohexol 350 MG/ML 100 ML Vial (for Cath Lab) IVCONTRAST ONE (11:34)
--- NOTE | 2017-10-02 12:48 | P.PNIM ---
Subjective Interval history: Pt seen and examined for f/u of NSTEMI and renal insufficiency. AFVSS. Patient seen following cardiac cath with stent x 2. He denies any chest pain or shortness of breath. His biggest concern is he states his room is too warm. Physical Exam Vital signs: Vital Signs 10/01/17 16:00 10/01/17 20:00 10/02/17 00:00 Temperature 98.4 F 98.0 F Pulse Rate 80 86 80 Respiratory Rate 20 18 Blood Pressure 143/66 H 116/58 L Pulse Oximetry 96 96 10/02/17 04:00 10/02/17 05:22 10/02/17 09:40 Temperature 98.4 F Pulse Rate 84 90 Respiratory Rate 20 Blood Pressure 96/66 L Pulse Oximetry 94 L 94 L Intake & Output 10/01/17 10/02/17 10/02/17 18:59 06:59 18:59 Intake Total 1730 / 1730 490 / 490 Output Total 1475 / 1475 Balance 1730 / 1730 -985 / -985 Weight 121 kg Intake: IV 1250 / 1250 250 / 250 Heparin/D5W 25,000 U/250 mL 25, 250 / 250 250 / 250 000 unit In 250 ml @ 1,000 UNITS/HR 10 mls/hr IV.CONT TITRATE PRN Rx#:[id number] 1/2 Normal Saline Inj 1,000 ML 1000 / 1000 @ 50 mls/hr IV.CONT .Q20H LSELIE Rx#:[id number] Oral 480 / 480 240 / 240 Output: Urine 1475 / 1475 Other: # Voids 6 Date of Last Bowel Movement 10/01/17 # Bowel Movements 0 Narrative: GENERAL: WN, WD male sitting up in bed in NAD. SKIN: Warm and dry. HEENT: AT/NC. Pupils equal and round. MMM. NECK: Supple no tender LAD or JVD. HEART: RRR no m/r/g. LUNGS: CTAB without wheezes or crackles. ABDOMEN: +BS, soft, NT, ND. EXTREMITIES: No LE edema. 2+ pedal pulses. NEURO: Awake and alert. Nonfocal. PSYCH: Appropriate mood and affect. Results - Labs CBC & Chem 7: 10/01/17 08:10 10/02/17 14:25 Laboratory Results - last 24 hr 0710/01/17 10/01/17 16:57 18:03 21:07 APTT 57.9 H D POC Glucose 202 H 204 H 10/02/17 00:17 APTT 50.8 H POC Glucose Microbiology 10/01/17 11:00 Stool Stool Occult Blood (ASHANTI) - Final Hemoccult negative - Imaging Impressions Abdomen/Bladder Ultrasound 09/29/17 00:00 CONCLUSION: 1. Left renal cyst. 2. Hepatic steatosis. Assessment and Plan - Assessment (1) NSTEMI (non-ST elevated myocardial infarction) Code(s): I21.4 - Non-ST elevation (NSTEMI) myocardial infarction Status: Acute (2) JULIA (acute kidney injury) Code(s): N17.9 - Acute kidney failure, unspecified Status: Acute - Plan 66 YOWM with HTN, HLD, DM, and CAD s/p CABG x5 admitted 09/29 for chest pain found to have NSTEMI. 1. NSTEMI - Troponins 4.27 > 27.4 > 26.8 - Cardiology consulted and patient underwent [facility] today showing a thrombotic subtotally occluded saphenous vein graft to the RCA and severe three-vessel [place] coronary artery disease. There is successful thrombectomy and endovascular stenting to the graft - Patient switched to Brilinta - Continue ASA, beta-tomasa, statin, and Imdur - Echo with EF 65-70% - Supplemental O2 PRN 2. JULIA - Unsure what his baseline is - Nephrology following - Avoid nephrotoxic agents - Renally dose meds - Monitor creatinine after contrast load from [facility] - Continue gentle hydration with NS at 50 ml/hr 3. DM - A1c 7.5 - Discontinue metformin given JULIA - SSI per protocol - Can resume home insulin and pioglitazone on discharge DVT prophylaxis: SCDs, ambulate Discussed Condition With: Patient and his Discharge Planning: Anticipate D/C tomorrow if renal function is stable
[2017-10-02 14:56] LABS: Calcium 9.2 mg/dL (8.5-10.1); Potassium 4.1 meq/L (3.5-5.1)
[2017-10-02] MEDS: Insulin NovoLOG Aspart Correctional Sugar Inj SQ SCH ×4 (15:13→21:11)
--- NOTE | 2017-10-02 16:47 | P.PNNP ---
Subjective Interval history: He had 2 stents placed during PCI today. at bedside. Creatinine stable. <Kiki Post - Last Filed: 10/02/17 16:43> Physical Exam Vital signs: Vital Signs 10/01/17 20:00 10/02/17 00:00 10/02/17 04:00 Temperature 98.0 F Pulse Rate 86 80 84 Respiratory Rate 18 Blood Pressure 116/58 L Pulse Oximetry 96 10/02/17 05:22 10/02/17 09:40 Temperature 98.4 F Pulse Rate 90 Respiratory Rate 20 Blood Pressure 96/66 L Pulse Oximetry 94 L 94 L Intake & Output 10/01/17 10/02/17 10/02/17 18:59 06:59 18:59 Intake Total 1730 / 1730 490 / 490 Output Total 1475 / 1475 Balance 1730 / 1730 -985 / -985 Weight 121 kg Intake: IV 1250 / 1250 250 / 250 Heparin/D5W 25,000 U/250 mL 25, 250 / 250 250 / 250 000 unit In 250 ml @ 1,000 UNITS/HR 10 mls/hr IV.CONT TITRATE PRN Rx#:[id number] 1/2 Normal Saline Inj 1,000 ML 1000 / 1000 @ 50 mls/hr IV.CONT .Q20H LESLIE Rx#:[id number] Oral 480 / 480 240 / 240 Output: Urine 1475 / 1475 Other: # Voids 6 Date of Last Bowel Movement 10/01/17 # Bowel Movements 0 - Constitutional no acute distress, morbidly obese, cooperative - Routine HEENT Exam Head: Present: normocephalic Eye: Present: EOMI - Routine Neck Exam Present: supple, full ROM. Absent: JVD - Routine Respiratory Exam Present: CTA bilaterally. Absent: accessory muscle use - Routine Cardiovascular Exam Present: RRR, S1, S2 - Routine Abdominal Exam Present: soft, normoactive bowel sounds - Routine Extremities Exam Present: full ROM, pulses intact. Absent: edema - Routine Skin Exam Present: intact, warm - Routine Neurological Exam Present: alert, oriented X3 - Detailed Neurological Exam: Coma Scale Eye Opening: Spontaneous Verbal Response: Oriented Motor Response: Obey commands Terri Coma Scale Total: 15 - Routine Psychiatric Exam Present: normal affect, normal thought process <Kiki Post - Last Filed: 10/02/17 16:43> Vital signs: Vital Signs 10/02/17 12:45 10/02/17 15:00 10/02/17 16:00 Temperature 98.0 F 98.1 F Pulse Rate 74 80 81 Respiratory Rate 16 12 Blood Pressure 124/75 151/76 H Pulse Oximetry 96 98 10/02/17 19:00 10/02/17 20:00 10/02/17 21:00 Temperature 98.3 F Pulse Rate 80 81 80 Respiratory Rate 16 Blood Pressure 115/62 Pulse Oximetry 95 10/02/17 22:00 10/02/17 23:00 10/03/17 00:00 Temperature 98.7 F Pulse Rate 82 88 89 Respiratory Rate 14 Blood Pressure 132/63 Pulse Oximetry 97 10/03/17 01:00 10/03/17 02:00 10/03/17 03:00 Temperature 99 F Pulse Rate 90 96 H 85 Respiratory Rate 16 Blood Pressure 113/57 L Pulse Oximetry 95 10/03/17 04:00 10/03/17 05:00 10/03/17 06:00 Temperature Pulse Rate 95 H 74 89 Respiratory Rate Blood Pressure Pulse Oximetry 10/03/17 07:00 10/03/17 08:00 10/03/17 09:00 Temperature 97.3 F L Pulse Rate 119 H 86 85 Respiratory Rate 18 Blood Pressure 121/75 Pulse Oximetry 96 96 10/03/17 10:00 10/03/17 10:25 Temperature Pulse Rate 81 Respiratory Rate Blood Pressure Pulse Oximetry 96 Intake & Output 10/02/17 10/03/17 10/03/17 18:59 06:59 18:59 Intake Total 970 / 970 240 / 240 Output Total 600 / 600 900 / 900 Balance 370 / 370 -660 / -660 Weight 119.7 kg Intake: IV 250 / 250 Heparin/D5W 25,000 U/250 mL 25, 250 / 250 000 unit In 250 ml @ 1,000 UNITS/HR 10 mls/hr IV.CONT TITRATE PRN Rx#:[id number] Oral 720 / 720 240 / 240 Output: Urine 600 / 600 900 / 900 Other: # Voids 2 Date of Last Bowel Movement 10/02/17 10/02/17 10/02/17 # Bowel Movements 2 <Arjun Mann - Last Filed: 10/03/17 10:33> Assessment and Plan - Assessment (1) JULIA (acute kidney injury) Code(s): N17.9 - Acute kidney failure, unspecified Status: Acute Plan: It is unclear what his baseline is. JULIA due to RI/NSTEMI Renal US negative. Renal function has improved and remained stable since admission. S/P cath, he is at risk for JULIA that can develop over the next 48 hrs. If discharged we will follow in CKD clinic. PO fluids encouraged. Repeat labs. He should stop fenofibrate due to association with CKD. (2) Unstable angina pectoris Code(s): I20.0 - Unstable angina Status: Acute Plan: s/p cath with 2 stents follow with cardiology after discharge (3) DM II (diabetes mellitus, type II), controlled Code(s): E11.9 - Type 2 diabetes mellitus without complications Status: Acute Plan: Maintain glucose 140-180 mg/dL while hospitalized. Metformin can be continued as GFR is over 45. Would recommend starting glipizide 5 or 10 mg daily as alternative. Defer to hospitalist. <Kiki Post - Last Filed: 10/02/17 16:43> - Assessment (1) JULIA (acute kidney injury) Code(s): N17.9 - Acute kidney failure, unspecified Status: Acute (2) Unstable angina pectoris Code(s): I20.0 - Unstable angina Status: Acute (3) DM II (diabetes mellitus, type II), controlled Code(s): E11.9 - Type 2 diabetes mellitus without complications Status: Acute - Attending Attestation patient was seen and examined. Agree with above assessment and plan. Outpatient followup. <Arjun Mann - Last Filed: 10/03/17 10:33>
[2017-10-02] MEDS: Sodium Chloride 0.45 % Inj 1,000 ML IV.CONT SCH (17:20)
[2017-10-03] MEDS: Sodium Chloride 0.45 % Inj 1,000 ML IV.CONT SCH (00:43)
[2017-10-03 06:29] LABS: Baso # (Auto) 0.1 th/mm3 (0.0-0.2); Baso % (Auto) 0.6 % (0.0-2.0); Eos # (Auto) 0.5 th/mm3 (0.0-0.4); Eos % (Auto) 4.5 % (0.0-4.0); Hematocrit 38.8 % (39.0-51.0); Hemoglobin 13.1 gm/dL (13.0-17.0); Mean Corpuscular HGB Conc 33.8 % (32.0-36.0); Mean Corpuscular Hemoglobin 31.3 pg (27.0-34.0); Mean Corpuscular Volume 92.5 fL (80.0-100.0); Mean Platelet Volume 8.4 fL (7.0-11.0); Mono # (Auto) 0.6 th/mm3 (0.0-0.9); Mono % (Auto) 6.4 % (0.0-8.0); Neut # (Auto) 7.9 th/mm3 (1.8-7.7); Neut % (Auto) 78.5 % (16.0-70.0); Platelet Count 252 th/mm3 (150-450); Red Cell Distribution Width 13.2 % (11.6-17.2)
[2017-10-03 06:40] LABS: Calcium 8.9 mg/dL (8.5-10.1); Carbon Dioxide 23.4 meq/L (21.0-32.0); Chol/HDL Ratio 4.8 Ratio
[2017-10-03 06:41] LABS: Potassium 4.3 meq/L (3.5-5.1)
[2017-10-03] MEDS ORDERED: Isosorbide Mononitrate 60 MG ER 24HR Tablet (Imdur) PO SCH (07:00)
[2017-10-03] MEDS: Metoprolol Tartrate 25 MG Tablet PO SCH (08:23)
[2017-10-03] MEDS: Insulin NovoLOG Aspart Correctional Sugar Inj SQ SCH (08:24)
--- NOTE | 2017-10-03 08:31 | P.PNCA ---
Subjective Interval history: Doing well post cath. No issues with right groin access site. No chest pain or shortness of breath. No arrhythmias noted. Physical Exam Vital signs: Vital Signs 10/02/17 09:40 10/02/17 12:45 10/02/17 15:00 Temperature 98.0 F Pulse Rate 74 80 Respiratory Rate 16 Blood Pressure 124/75 Pulse Oximetry 94 L 96 10/02/17 16:00 10/02/17 19:00 10/02/17 20:00 Temperature 98.1 F 98.3 F Pulse Rate 81 80 81 Respiratory Rate 12 16 Blood Pressure 151/76 H 115/62 Pulse Oximetry 98 95 10/02/17 21:00 10/02/17 22:00 10/02/17 23:00 Temperature 98.7 F Pulse Rate 80 82 88 Respiratory Rate 14 Blood Pressure 132/63 Pulse Oximetry 97 10/03/17 00:00 10/03/17 01:00 10/03/17 02:00 Temperature Pulse Rate 89 90 96 H Respiratory Rate Blood Pressure Pulse Oximetry 10/03/17 03:00 10/03/17 04:00 10/03/17 05:00 Temperature 99 F Pulse Rate 85 95 H 74 Respiratory Rate 16 Blood Pressure 113/57 L Pulse Oximetry 95 10/03/17 06:00 10/03/17 07:00 Temperature 97.3 F L Pulse Rate 89 97 H Respiratory Rate 18 Blood Pressure 121/75 Pulse Oximetry 96 Intake & Output 10/02/17 10/03/17 10/03/17 18:59 06:59 18:59 Intake Total 970 / 970 240 / 240 Output Total 600 / 600 900 / 900 Balance 370 / 370 -660 / -660 Weight 263 lb 14.293 oz Intake: IV 250 / 250 Heparin/D5W 25,000 U/250 mL 25, 250 / 250 000 unit In 250 ml @ 1,000 UNITS/HR 10 mls/hr IV.CONT TITRATE PRN Rx#:[id number] Oral 720 / 720 240 / 240 Output: Urine 600 / 600 900 / 900 Other: # Voids 2 Date of Last Bowel Movement 10/02/17 10/02/17 # Bowel Movements 2 Narrative: GENERAL: Well-developed well-nourished. In no acute distress. NECK: No carotid bruits. No JVD. CARDIOVASCULAR: Regular rate and rhythm. No murmur appreciated. Right groin with intact pulses and minimal ecchymosis, no swelling or tenderness RESPIRATORY: No accessory muscle use. Clear to auscultation. Breath sounds equal bilaterally. MUSCULOSKELETAL: No clubbing or cyanosis. No edema. NEUROLOGICAL: Awake and alert. Normal speech. Assessment and Plan - Assessment (1) Unstable angina pectoris Code(s): I20.0 - Unstable angina Status: Acute (2) JULIA (acute kidney injury) Code(s): N17.9 - Acute kidney failure, unspecified Status: Acute - Plan 66 yo WM with CAD, prior 5 vessel CABG (1998), several cardiac catheterizations with stent placed (last intervention 2008), DMII, HTN and CKD who presents with acute chest pain. Mr. Camacho is a resident of [place] but has not followed with a local weatherse[employer] technician in >8 years. NSTEMI: troponins 4.27 --> 27.4 -->26.[address] [facility] 10/02 with severe [place] three-vessel CAD, initially 2/4 bypass grafts patent , PCI to SVG->RCA Plavix changed to Brilinta cont bb, asa, statin JULIA: nephrology on board. ARB stopped. Improved s/p IVF. NSVT: 5 beats on telemetry 09/29/17. Echo with normal EF. Continue metoprolol. Discharge planning
--- NOTE | 2017-10-03 09:59 | P.PNNP ---
Subjective Interval history: Sitting up, not in distress. Renal function is stable. <SincereKiki Black - Last Filed: 10/03/17 09:53> Physical Exam Vital signs: Vital Signs 10/02/17 12:45 10/02/17 15:00 10/02/17 16:00 Temperature 98.0 F 98.1 F Pulse Rate 74 80 81 Respiratory Rate 16 12 Blood Pressure 124/75 151/76 H Pulse Oximetry 96 98 10/02/17 19:00 10/02/17 20:00 10/02/17 21:00 Temperature 98.3 F Pulse Rate 80 81 80 Respiratory Rate 16 Blood Pressure 115/62 Pulse Oximetry 95 10/02/17 22:00 10/02/17 23:00 10/03/17 00:00 Temperature 98.7 F Pulse Rate 82 88 89 Respiratory Rate 14 Blood Pressure 132/63 Pulse Oximetry 97 10/03/17 01:00 10/03/17 02:00 10/03/17 03:00 Temperature 99 F Pulse Rate 90 96 H 85 Respiratory Rate 16 Blood Pressure 113/57 L Pulse Oximetry 95 10/03/17 04:00 10/03/17 05:00 10/03/17 06:00 Temperature Pulse Rate 95 H 74 89 Respiratory Rate Blood Pressure Pulse Oximetry 10/03/17 07:00 Temperature 97.3 F L Pulse Rate 97 H Respiratory Rate 18 Blood Pressure 121/75 Pulse Oximetry 96 Intake & Output 10/02/17 10/03/17 10/03/17 18:59 06:59 18:59 Intake Total 970 / 970 240 / 240 Output Total 600 / 600 900 / 900 Balance 370 / 370 -660 / -660 Weight 119.7 kg Intake: IV 250 / 250 Heparin/D5W 25,000 U/250 mL 25, 250 / 250 000 unit In 250 ml @ 1,000 UNITS/HR 10 mls/hr IV.CONT TITRATE PRN Rx#:[id number] Oral 720 / 720 240 / 240 Output: Urine 600 / 600 900 / 900 Other: # Voids 2 Date of Last Bowel Movement 10/02/17 10/02/17 # Bowel Movements 2 - Constitutional no acute distress, average body habitus - Routine Neck Exam Present: supple, full ROM - Routine Respiratory Exam Present: CTA bilaterally. Absent: accessory muscle use, stridor, wheezes, crackles - Routine Cardiovascular Exam Present: RRR, S1, S2 - Routine Abdominal Exam Present: soft, normoactive bowel sounds. Absent: tenderness, distended - Routine Skin Exam Present: intact, dry, warm - Routine Neurological Exam Present: alert, oriented X3, CN II-XII intact, moving all extremities - Detailed Neurological Exam: Coma Scale Eye Opening: Spontaneous Verbal Response: Oriented Motor Response: Obey commands Bryson Coma Scale Total: 15 - Routine Psychiatric Exam Present: normal affect, normal thought process <Kiki Post - Last Filed: 10/03/17 09:53> Vital signs: Vital Signs 10/03/17 09:00 10/03/17 10:00 10/03/17 10:25 Temperature Pulse Rate 85 81 Respiratory Rate Blood Pressure Pulse Oximetry 96 10/03/17 11:00 10/03/17 12:00 10/03/17 13:00 Temperature 97.6 F Pulse Rate 83 82 87 Respiratory Rate 18 Blood Pressure 128/71 Pulse Oximetry 96 Intake & Output 10/03/17 10/04/17 10/04/17 18:59 06:59 18:59 Other: Date of Last Bowel Movement 10/02/17 <Arjun Mann - Last Filed: 10/04/17 08:12> Assessment and Plan - Assessment (1) JULIA (acute kidney injury) Code(s): N17.9 - Acute kidney failure, unspecified Status: Acute Plan: Non oliguric renal failure, most likely due to NSTEMI and decreased renal perfusion. Creatinine has improved and remained stable. This is most likely his baseline. He is making urine. Stable for discharge, we will arrange to follow in our CKD clinic. PO fluids encouraged. Advised to limit excess protein intake, processed foods, dark tyler, and NSAIDs. He should also stop fenofibrate due to association with CKD. (2) Unstable angina pectoris Code(s): I20.0 - Unstable angina Status: Acute Plan: s/p cath 10/02 with 2 stents placed Follow with cardiology after discharge On Brilinta, off Plavix (3) DM II (diabetes mellitus, type II), controlled Code(s): E11.9 - Type 2 diabetes mellitus without complications Status: Acute Plan: Maintain glucose 140-180 mg/dL while hospitalized. A1c 7.5% Would recommend changing metformin to glipizide, either 5 or 10 mg daily. Defer to hospitalist. <Kiki Post - Last Filed: 10/03/17 09:53> - Assessment (1) JULIA (acute kidney injury) Code(s): N17.9 - Acute kidney failure, unspecified Status: Acute (2) Unstable angina pectoris Code(s): I20.0 - Unstable angina Status: Acute (3) DM II (diabetes mellitus, type II), controlled Code(s): E11.9 - Type 2 diabetes mellitus without complications Status: Acute - Attending Attestation patient was seen and examined. He can be discharged from renal standpoint. Agree with above assessment and plan. <Arjun Mann - Last Filed: 10/04/17 08:12>
--- NOTE | 2017-10-03 13:54 | P.PNIM ---
Subjective Interval history: 66-year-old male with PMH significant for HTN, HLD, DM, CAD s/p CABG x5 vessels, and stenting who presents to the ER via [facility] with complaints of chest pain. Patient reports that he was working out on [employer] earlier today when he began experiencing chest pain. Patient states that pain was located on the center of his chest nonradiating, rates it an 8/10, describes the pain as stabbing, he also experienced diaphoresis. He then when inside the building to cool off, however pain did not improved and [facility] was called. He was not given any nitro in rout as he was told his BP was too low. In [facility] patient also had nausea and vomited once. While in the ER he again had one episode of emesis. EKD done in the ER revealed nonspecific ST elevations in the inferior leads. Initial troponin was negative, hemodynamically stable on arrival with negative chest x-ray. His CMP did reveal an elevated BUN and creatinine at 2.64. 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 He does followup with [facility] as his primary and about 6 weeks ago was told that he had abnormal kidney function and had to stop taking Ibuprofen due to his kidneys. At the time of my examination patient is awake and alert and appears to be in no acute distress. He still continues to complain of mid- sternal chest pain and currently rates pain 8/10, nonradiating. He denies any additional nausea or vomiting, denies any SOB, cough, dizziness or lightheadedness. 7-28 f/u; NSTEMI/ renal insufficiency in no acute distress. denies chest pain or sob. no new complaints. 7-29 f/u; NSTEMI looks comfortable. no chest pain or sob. no new complaints. 7-30Pt seen and examined for f/u of NSTEMI and renal insufficiency. AFVSS. Patient seen following cardiac cath with stent x 2. He denies any chest pain or shortness of breath. His biggest concern is he states his room is too warm. 731 has been cleared by cardiology and renal for dc dc to home today dw rn and pt and FAMILY DC TO HOME FU PCP AND FU CARDIOLOGY Physical Exam Vital signs: Vital Signs 10/02/17 15:00 10/02/17 16:00 10/02/17 19:00 Temperature 98.1 F 98.3 F Pulse Rate 80 81 80 Respiratory Rate 12 16 Blood Pressure 151/76 H 115/62 Pulse Oximetry 98 95 10/02/17 20:00 10/02/17 21:00 10/02/17 22:00 Temperature Pulse Rate 81 80 82 Respiratory Rate Blood Pressure Pulse Oximetry 10/02/17 23:00 10/03/17 00:00 10/03/17 01:00 Temperature 98.7 F Pulse Rate 88 89 90 Respiratory Rate 14 Blood Pressure 132/63 Pulse Oximetry 97 10/03/17 02:00 10/03/17 03:00 10/03/17 04:00 Temperature 99 F Pulse Rate 96 H 85 95 H Respiratory Rate 16 Blood Pressure 113/57 L Pulse Oximetry 95 10/03/17 05:00 10/03/17 06:00 10/03/17 07:00 Temperature 97.3 F L Pulse Rate 74 89 119 H Respiratory Rate 18 Blood Pressure 121/75 Pulse Oximetry 96 10/03/17 08:00 10/03/17 09:00 10/03/17 10:00 Temperature Pulse Rate 86 85 81 Respiratory Rate Blood Pressure Pulse Oximetry 96 10/03/17 10:25 10/03/17 11:00 10/03/17 12:00 Temperature 97.6 F Pulse Rate 83 82 Respiratory Rate 18 Blood Pressure 128/71 Pulse Oximetry 96 96 Intake & Output 10/02/17 10/03/17 10/03/17 18:59 06:59 18:59 Intake Total 970 / 970 240 / 240 Output Total 600 / 600 900 / 900 Balance 370 / 370 -660 / -660 Weight 119.7 kg Intake: IV 250 / 250 Heparin/D5W 25,000 U/250 mL 25, 250 / 250 000 unit In 250 ml @ 1,000 UNITS/HR 10 mls/hr IV.CONT TITRATE PRN Rx#:[id number] Oral 720 / 720 240 / 240 Output: Urine 600 / 600 900 / 900 Other: # Voids 2 Date of Last Bowel Movement 10/02/17 10/02/17 10/02/17 # Bowel Movements 2 Narrative: AWAKE alert and oriented 3 talkative and cooperative GENERAL: Well-developed well-nourished. In no acute distress. NECK: No carotid bruits. No JVD. CARDIOVASCULAR: Regular rate and rhythm. No murmur appreciated. Right groin with intact pulses and minimal ecchymosis, no swelling or tenderness RESPIRATORY: No accessory muscle use. Clear to auscultation. Breath sounds equal bilaterally. MUSCULOSKELETAL: No clubbing or cyanosis. No edema. NEUROLOGICAL: Awake and alert. Normal speech. Insight and judgment is good Mood and behavior is appropriate Results - Labs CBC & Chem 7: 10/03/17 04:43 10/03/17 04:43 Laboratory Results - last 24 hr 10/02/17 10/02/17 10/02/17 14:25 14:25 17:00 WBC RBC Hgb Hct MCV MCH MCHC RDW Plt Count MPV Prelim Diff (Auto) Neut % (Auto) Lymph % (Auto) [place] % (Auto) Eos % (Auto) Baso % (Auto) Neut # (Auto) Lymph # (Auto) [place] # (Auto) Eos # (Auto) Baso # (Auto) WBC Differential Diff Scan Differential Comment APTT 35.9 H D Sodium 140 Potassium 4.1 Chloride 106 Carbon Dioxide 28.0 Anion Gap 6 BUN 24 H Creatinine 1.47 H Estimated GFR 48 L POC Glucose 179 H Random Glucose 174 H Calcium 9.2 Total Creatine Kinase Triglycerides Cholesterol LDL Cholesterol, Calc HDL Cholesterol Cholesterol/HDL Ratio 10/02/17 10/03/17 10/03/17 19:41 04:43 04:43 WBC 10.0 RBC 4.20 L Hgb 13.1 Hct 38.8 L MCV 92.5 MCH 31.3 MCHC 33.8 RDW 13.2 Plt Count 252 MPV 8.4 Prelim Diff (Auto) Slide review pending Neut % (Auto) 78.5 H Lymph % (Auto) 10.0 [place] % (Auto) 6.4 Eos % (Auto) 4.5 H Baso % (Auto) 0.6 Neut # (Auto) 7.9 H Lymph # (Auto) 1.0 [place] # (Auto) 0.6 Eos # (Auto) 0.5 H Baso # (Auto) 0.1 WBC Differential . Diff Scan Auto diff confirmed Differential Comment . APTT Sodium 139 Potassium 4.3 Chloride 108 H Carbon Dioxide 23.4 Anion Gap 8 BUN 24 H Creatinine 1.40 H Estimated GFR 51 L POC Glucose 236 H Random Glucose 155 H Calcium 8.9 Total Creatine Kinase 143 Triglycerides 303 H Cholesterol 221 H LDL Cholesterol, Calc 114 H HDL Cholesterol 46.0 Cholesterol/HDL Ratio 4.80 10/03/17 10/03/17 08:17 12:13 WBC RBC Hgb Hct MCV MCH MCHC RDW Plt Count MPV Prelim Diff (Auto) Neut % (Auto) Lymph % (Auto) [place] % (Auto) Eos % (Auto) Baso % (Auto) Neut # (Auto) Lymph # (Auto) [place] # (Auto) Eos # (Auto) Baso # (Auto) WBC Differential Diff Scan Differential Comment APTT Sodium Potassium Chloride Carbon Dioxide Anion Gap BUN Creatinine Estimated GFR POC Glucose 201 H 243 H Random Glucose Calcium Total Creatine Kinase Triglycerides Cholesterol LDL Cholesterol, Calc HDL Cholesterol Cholesterol/HDL Ratio - Imaging Abdomen/Bladder Ultrasound 09/29/17 00:00 CONCLUSION: 1. Left renal cyst. 2. Hepatic steatosis. Chest X-Ray 09/29/17 14:11 CONCLUSION: No acute cardiopulmonary disease. - Procedures 10/02/2017 INDICATION: Non-ST elevation myocardial infarction. PROCEDURES PERFORMED: 1. Fluoroscopy with interpretation. 2. Coronary angiography. 3. Coronary artery bypass angiography. 4. Left heart catheterization. 5. Percutaneous coronary intervention of the saphenous vein graft to the right coronary artery with drug-eluting stent. 6. Temporary transvenous pacemaker. 7. Rheolytic thrombectomy of the saphenous vein graft to the right coronary artery. 8. Intracoronary administration of nitroglycerin and adenosine METHOD: Risks, benefits and alternatives discussed with the patient. The patient understood and consented to the procedure. The patient was brought into the catheterization lab, placed on the catheterization table. The right groin was prepped and draped in a sterile fashion. The right groin was anesthetized with 2% lidocaine. The right common femoral artery was cannulated and a 5-Moroccan 11 cm sheath was placed without difficulty. LEFT HEART CATHETERIZATION: Intraventricular hemodynamics measured at 120/20 mmHg. CORONARY ANGIOGRAPHY: 1. Left main coronary artery has mild luminal irregularities. 2. Left anterior descending coronary artery is 100% occluded proximally. 3. The circumflex coronary has a ramus intermedius branch, which has mild luminal irregularities. There is a smaller subbranch that has an acute angulated takeoff and a 99% stenosis, but is small caliber size. It is stented and appears patent which actually crosses the bifurcation of the small subbranch. The circumflex is smaller caliber size widely patent. 4. Right coronary artery is occluded proximally. CORONARY BYPASS GRAFT ANGIOGRAPHY: 1. Left internal mammary to the left anterior descending coronary artery is patent. 2. Left anterior descending coronary artery proximal to the graft anastomosis has diffuse disease. There appears to be a diagonal branch that is subtotally occluded. The distal apical left anterior descending coronary artery has a 95% stenosis, but is very small caliber size and wraps around the inferoapex. 3. The saphenous vein graft to the right coronary artery has a 99% proximal stenosis with heavy thrombotic burden throughout the entire graft. There is a bifurcation of the posterior descending and posterolateral branches, which are patent. 4. Saphenous vein graft to ramus intermedius branch is occluded. Saphenous vein graft to the diagonal branch is occluded. TEMPORARY TRANSVENOUS PACEMAKER PLACEMENT: A 5-Moroccan balloon tipped temporary transvenous pacemaker was advanced through a 6-Moroccan sheath placed in the right femoral vein. Temporary pacing was confirmed and utilized throughout the procedure. PERCUTANEOUS INTERVENTION: Saphenous vein graft to the right coronary artery was selectively engaged with a multipurpose catheter. A 0.014 inch, 180 cm [employer] wire was advanced out to the distal posterior descending branch. Rheolytic thrombectomy was performed on 4 sequential passes through the vein graft to the right coronary artery with a 4-Moroccan Spiroflex AngioJet catheter. Pacing was utilized during that portion of the procedure. Repeat angiography following administration of intracoronary adenosine and nitroglycerin revealed severe residual stenosis, but much improved thrombotic burden. A 2.75 x 38 mm RX Resolute Victor Hugo stent was advanced down to the distal vein graft and deployed just prior to the bifurcation. Repeat angiography showed no residual stenosis. A 3.0 x 15 mm RX Resolute Victor Hugo drug-eluting stent was advanced in the proximal vein graft and deployed. The ostium flared with stent balloon. Repeat angiography showed no residual stenosis, IVAN 3 flow. CONCLUSIONS: 1. Thrombotic subtotally occluded saphenous vein graft to the right coronary artery. 2. Successful rheolytic thrombectomy, endovascular stenting with drug-eluting stents to the saphenous vein graft to the right coronary artery. 3. Successful utilization of temporary transvenous pacemaker. 4. Severe 3-vessel [place] coronary artery disease. 5. 2/4 visualized grafts were widely patent. There were graft markers. The patient reports 5 total bypass grafts one may have been a jump graft not visualized that was occluded. 6. Normal left-sided filling pressure. PLAN: We are going to switch the patient from Plavix to Brilinta given his thrombotic mediated event on Plavix. We will continue aspirin, statin, beta tomasa and long-acting nitrate. Both groins were closed with a VASCADE device with good hemostasis. We may be able to potentially consider discharge later today. Jarrett Mckeon MD Assessment and Plan - Assessment (1) Unstable angina pectoris Code(s): I20.0 - Unstable angina Status: Acute (2) JULIA (acute kidney injury) Code(s): N17.9 - Acute kidney failure, unspecified Status: Acute - Plan 66 YOWM with HTN, HLD, DM, and CAD s/p CABG x5 admitted 09/29 for chest pain found to have NSTEMI. 1. NSTEMI - Troponins 4.27 > 27.4 > 26.8 - Cardiology consulted and patient underwent [facility] today showing a thrombotic subtotally occluded saphenous vein graft to the RCA and severe three-vessel [place] coronary artery disease. There is successful thrombectomy and endovascular stenting to the graft - Patient switched to Brilinta - Continue ASA, beta-tomasa, statin, and Imdur - Echo with EF 65-70% - Supplemental O2 PRN 2. JULIA - Unsure what his baseline is - Nephrology following - Avoid nephrotoxic agents - Renally dose meds - Monitor creatinine after contrast load from [facility] - Continue gentle hydration with NS at 50 ml/hr 3. DM - A1c 7.5 - Discontinue metformin given JULIA - SSI per protocol - Can resume home insulin and pioglitazone on discharge DVT prophylaxis: SCDs, ambulate Has been cleared by cardiology and nephrology for discharge Follow-up with cardiology in 1 week Follow-up with PCP in 2-3 days Code Status: Full code Discussed Condition With: RN and patient and family Discharge Planning: DC to home today
--- NOTE | 2017-10-03 14:01 | P.DS ---
Date of admission: 09/29/17 16:18 Primary care physician: No Primary Care Physician Attending physician on discharge: Benito Lemos Anticipated date of discharge: 10/03/17 Brief History from admission: 66-year-old male with PMH significant for HTN, HLD, DM, CAD s/p CABG x5 vessels, and stenting who presents to the ER via [facility] with complaints of chest pain. Patient reports that he was working out on [email or web address] earlier today when he began experiencing chest pain. Patient states that pain was located on the center of his chest nonradiating, rates it an 8/10, describes the pain as stabbing, he also experienced diaphoresis. He then when inside the building to cool off, however pain did not improved and [facility] was called. He was not given any nitro in rout as he was told his BP was too low. In [facility] patient also had nausea and vomited once. While in the ER he again had one episode of emesis. EKD done in the ER revealed nonspecific ST elevations in the inferior leads. Initial troponin was negative, hemodynamically stable on arrival with negative chest x-ray. His CMP did reveal an elevated BUN and creatinine at 2.64. 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 He does followup with [facility] as his primary and about 6 weeks ago was told that he had abnormal kidney function and had to stop taking Ibuprofen due to his kidneys. At the time of my examination patient is awake and alert and appears to be in no acute distress. He still continues to complain of mid- sternal chest pain and currently rates pain 8/10, nonradiating. He denies any additional nausea or vomiting, denies any SOB, cough, dizziness or lightheadedness. DS: Diagnosis - Discharge Diagnosis (1) Unstable angina pectoris Status: Acute (2) JULIA (acute kidney injury) Status: Acute (3) CAD (coronary artery disease) Status: Acute DS: Medications - Discharge Medications Prescriptions: aspirin 81 mg PO DAILY #30 tab atorvastatin 40 mg PO HS #30 tab isosorbide mononitrate 60 mg PO DAILY@0700 #30 tab metoprolol tartrate 25 mg PO BID #60 tab ticagrelor [Brilinta] 90 mg PO BID #60 tab DS: Summary Hospital Course: 66-year-old male with PMH significant for HTN, HLD, DM, CAD s/p CABG x5 vessels, and stenting who presents to the ER via [facility] with complaints of chest pain. Patient reports that he was working out on [email or web address] earlier today when he began experiencing chest pain. Patient states that pain was located on the center of his chest nonradiating, rates it an 8/10, describes the pain as stabbing, he also experienced diaphoresis. He then when inside the building to cool off, however pain did not improved and [facility] was called. He was not given any nitro in rout as he was told his BP was too low. In [facility] patient also had nausea and vomited once. While in the ER he again had one episode of emesis. EKD done in the ER revealed nonspecific ST elevations in the inferior leads. Initial troponin was negative, hemodynamically stable on arrival with negative chest x-ray. His CMP did reveal an elevated BUN and creatinine at 2.64. 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 He does followup with [facility] as his primary and about 6 weeks ago was told that he had abnormal kidney function and had to stop taking Ibuprofen due to his kidneys. At the time of my examination patient is awake and alert and appears to be in no acute distress. He still continues to complain of mid- sternal chest pain and currently rates pain 8/10, nonradiating. He denies any additional nausea or vomiting, denies any SOB, cough, dizziness or lightheadedness. 7-28 f/u; NSTEMI/ renal insufficiency in no acute distress. denies chest pain or sob. no new complaints. 7-29 f/u; NSTEMI looks comfortable. no chest pain or sob. no new complaints. 7-30Pt seen and examined for f/u of NSTEMI and renal insufficiency. AFVSS. Patient seen following cardiac cath with stent x 2. He denies any chest pain or shortness of breath. His biggest concern is he states his room is too warm. 7-31 has been cleared by cardiology and renal for dc dc to home today dw rn and pt and FAMILY DC TO HOME FU PCP AND FU CARDIOLOGY - Time Spent with Patient Total time spent providing and/or coordinating discharge services: Greater than 30 minutes - Quality: VTE Deep Vein Thrombosis/Pulmonary Embolism Present on Admission: No Exam Vital signs: Vital Signs 10/02/17 15:00 10/02/17 16:00 10/02/17 19:00 Temperature 98.1 F 98.3 F Pulse Rate 80 81 80 Respiratory Rate 12 16 Blood Pressure 151/76 H 115/62 Pulse Oximetry 98 95 10/02/17 20:00 10/02/17 21:00 10/02/17 22:00 Temperature Pulse Rate 81 80 82 Respiratory Rate Blood Pressure Pulse Oximetry 10/02/17 23:00 10/03/17 00:00 10/03/17 01:00 Temperature 98.7 F Pulse Rate 88 89 90 Respiratory Rate 14 Blood Pressure 132/63 Pulse Oximetry 97 10/03/17 02:00 10/03/17 03:00 10/03/17 04:00 Temperature 99 F Pulse Rate 96 H 85 95 H Respiratory Rate 16 Blood Pressure 113/57 L Pulse Oximetry 95 10/03/17 05:00 10/03/17 06:00 10/03/17 07:00 Temperature 97.3 F L Pulse Rate 74 89 119 H Respiratory Rate 18 Blood Pressure 121/75 Pulse Oximetry 96 10/03/17 08:00 10/03/17 09:00 10/03/17 10:00 Temperature Pulse Rate 86 85 81 Respiratory Rate Blood Pressure Pulse Oximetry 96 10/03/17 10:25 10/03/17 11:00 10/03/17 12:00 Temperature 97.6 F Pulse Rate 83 82 Respiratory Rate 18 Blood Pressure 128/71 Pulse Oximetry 96 96 Intake & Output 10/02/17 10/03/17 10/03/17 18:59 06:59 18:59 Intake Total 970 / 970 240 / 240 Output Total 600 / 600 900 / 900 Balance 370 / 370 -660 / -660 Weight 119.7 kg Intake: IV 250 / 250 Heparin/D5W 25,000 U/250 mL 25, 250 / 250 000 unit In 250 ml @ 1,000 UNITS/HR 10 mls/hr IV.CONT TITRATE PRN Rx#:[id number] Oral 720 / 720 240 / 240 Output: Urine 600 / 600 900 / 900 Other: # Voids 2 Date of Last Bowel Movement 10/02/17 10/02/17 10/02/17 # Bowel Movements 2 Narrative: GENERAL: WN, WD male sitting up in bed in NAD. SKIN: Warm and dry. HEENT: AT/NC. Pupils equal and round. MMM. NECK: Supple no tender LAD or JVD. HEART: RRR no m/r/g. LUNGS: CTAB without wheezes or crackles. ABDOMEN: +BS, soft, NT, ND. EXTREMITIES: No LE edema. 2+ pedal pulses. NEURO: Awake and alert. Nonfocal. PSYCH: Appropriate mood and affect. Results Procedures completed during hospitalization: 10/02/2017 INDICATION: Non-ST elevation myocardial infarction. PROCEDURES PERFORMED: 1. Fluoroscopy with interpretation. 2. Coronary angiography. 3. Coronary artery bypass angiography. 4. Left heart catheterization. 5. Percutaneous coronary intervention of the saphenous vein graft to the right coronary artery with drug-eluting stent. 6. Temporary transvenous pacemaker. 7. Rheolytic thrombectomy of the saphenous vein graft to the right coronary artery. 8. Intracoronary administration of nitroglycerin and adenosine METHOD: Risks, benefits and alternatives discussed with the patient. The patient understood and consented to the procedure. The patient was brought into the catheterization lab, placed on the catheterization table. The right groin was prepped and draped in a sterile fashion. The right groin was anesthetized with 2% lidocaine. The right common femoral artery was cannulated and a 5-Cameroonian 11 cm sheath was placed without difficulty. LEFT HEART CATHETERIZATION: Intraventricular hemodynamics measured at 120/20 mmHg. CORONARY ANGIOGRAPHY: 1. Left main coronary artery has mild luminal irregularities. 2. Left anterior descending coronary artery is 100% occluded proximally. 3. The circumflex coronary has a ramus intermedius branch, which has mild luminal irregularities. There is a smaller subbranch that has an acute angulated takeoff and a 99% stenosis, but is small caliber size. It is stented and appears patent which actually crosses the bifurcation of the small subbranch. The circumflex is smaller caliber size widely patent. 4. Right coronary artery is occluded proximally. CORONARY BYPASS GRAFT ANGIOGRAPHY: 1. Left internal mammary to the left anterior descending coronary artery is patent. 2. Left anterior descending coronary artery proximal to the graft anastomosis has diffuse disease. There appears to be a diagonal branch that is subtotally occluded. The distal apical left anterior descending coronary artery has a 95% stenosis, but is very small caliber size and wraps around the inferoapex. 3. The saphenous vein graft to the right coronary artery has a 99% proximal stenosis with heavy thrombotic burden throughout the entire graft. There is a bifurcation of the posterior descending and posterolateral branches, which are patent. 4. Saphenous vein graft to ramus intermedius branch is occluded. Saphenous vein graft to the diagonal branch is occluded. TEMPORARY TRANSVENOUS PACEMAKER PLACEMENT: A 5-[place]onian balloon tipped temporary transvenous pacemaker was advanced through a 6-Cam[place]onian sheath placed in the right femoral vein. Temporary pacing was confirmed and utilized throughout the procedure. PERCUTANEOUS INTERVENTION: Saphenous vein graft to the right coronary artery was selectively engaged with a multipurpose catheter. A 0.014 inch, 180 cm MD-ITwater wire was advanced out to the distal posterior descending branch. Rheolytic thrombectomy was performed on 4 sequential passes through the vein graft to the right coronary artery with a 4-Cam[place]onian Spiroflex AngioJet catheter. Pacing was utilized during that portion of the procedure. Repeat angiography following administration of intracoronary adenosine and nitroglycerin revealed severe residual stenosis, but much improved thrombotic burden. A 2.75 x 38 mm RX Resolute Vcitor Hugo stent was advanced down to the distal vein graft and deployed just prior to the bifurcation. Repeat angiography showed no residual stenosis. A 3.0 x 15 mm RX Resolute Victor Hugo drug-eluting stent was advanced in the proximal vein graft and deployed. The ostium flared with stent balloon. Repeat angiography showed no residual stenosis, IVAN 3 flow. CONCLUSIONS: 1. Thrombotic subtotally occluded saphenous vein graft to the right coronary artery. 2. Successful rheolytic thrombectomy, endovascular stenting with drug-eluting stents to the saphenous vein graft to the right coronary artery. 3. Successful utilization of temporary transvenous pacemaker. 4. Severe 3-vessel [place] coronary artery disease. 5. 2/4 visualized grafts were widely patent. There were graft markers. The patient reports 5 total bypass grafts one may have been a jump graft not visualized that was occluded. 6. Normal left-sided filling pressure. PLAN: We are going to switch the patient from Plavix to Brilinta given his thrombotic mediated event on Plavix. We will continue aspirin, statin, beta tomasa and long-acting nitrate. Both groins were closed with a VASCADE device with good hemostasis. We may be able to potentially consider discharge later today. Jarrett Mckeon MD Completed studies during hospitalization: Laboratory Results WBC 10.0 th/mm3 (4.0-11.0) 10/03/17 04:43 RBC 4.20 mil/mm3 (4.50-5.90) L 10/03/17 04:43 Hgb 13.1 gm/dL (13.0-17.0) 10/03/17 04:43 Hct 38.8 % (39.0-51.0) L 10/03/17 04:43 MCV 92.5 fL (80.0-100.0) 10/03/17 04:43 MCH 31.3 pg (27.0-34.0) 10/03/17 04:43 MCHC 33.8 % (32.0-36.0) 10/03/17 04:43 RDW 13.2 % (11.6-17.2) 10/03/17 04:43 Plt Count 252 th/mm3 (150-450) 10/03/17 04:43 MPV 8.4 fL (7.0-11.0) 10/03/17 04:43 Prelim Diff (Auto) Slide review pending 10/03/17 04:43 Neut % (Auto) 78.5 % (16.0-70.0) H 10/03/17 04:43 Lymph % (Auto) 10.0 % (9.0-44.0) 10/03/17 04:43 [place] % (Auto) 6.4 % (0.0-8.0) 10/03/17 04:43 Eos % (Auto) 4.5 % (0.0-4.0) H 10/03/17 04:43 Baso % (Auto) 0.6 % (0.0-2.0) 10/03/17 04:43 Neut # (Auto) 7.9 th/mm3 (1.8-7.7) H 10/03/17 04:43 Lymph # (Auto) 1.0 th/mm3 (1.0-4.8) 10/03/17 04:43 [place] # (Auto) 0.6 th/mm3 (0.0-0.9) 10/03/17 04:43 Eos # (Auto) 0.5 th/mm3 (0.0-0.4) H 10/03/17 04:43 Baso # (Auto) 0.1 th/mm3 (0.0-0.2) 10/03/17 04:43 WBC Differential . 10/03/17 04:43 Diff Scan Auto diff confirmed 10/03/17 04:43 Differential Comment . 10/03/17 04:43 PT 11.3 sec (9.8-11.6) 09/29/17 14:19 INR 1.1 Ratio 09/29/17 14:19 APTT 35.9 sec (24.3-30.1) H D 10/02/17 14:25 Sodium 139 meq/L (136-145) 10/03/17 04:43 Potassium 4.3 meq/L (3.5-5.1) 10/03/17 04:43 Chloride 108 meq/L (98-107) H 10/03/17 04:43 Carbon Dioxide 23.4 meq/L (21.0-32.0) 10/03/17 04:43 Anion Gap 8 meq/L (5-15) 10/03/17 04:43 BUN 24 mg/dL (7-18) H 10/03/17 04:43 Creatinine 1.40 mg/dL (0.60-1.30) H 10/03/17 04:43 Estimated GFR 51 mL/min (>89) L 10/03/17 04:43 POC Glucose 243 mg/dl (68-110) H 10/03/17 12:13 Random Glucose 155 mg/dL (74-106) H 10/03/17 04:43 Hemoglobin A1c 7.5 % (4.3-6.0) H 10/01/17 08:10 Calcium 8.9 mg/dL (8.5-10.1) 10/03/17 04:43 Total Bilirubin 0.3 mg/dL (0.2-1.0) 09/29/17 14:19 AST 21 U/L (15-37) 09/29/17 14:19 ALT 31 U/L (12-78) 09/29/17 14:19 Alkaline Phosphatase 67 U/L (45-117) 09/29/17 14:19 Total Creatine Kinase 143 U/L (39-308) 10/03/17 04:43 CK-MB (CK-2) 70.1 ng/mL (0.5-3.6) H 09/30/17 03:25 CK-MB (CK-2) % 7.5 % (0.0-4.0) H* 09/30/17 03:25 Troponin I 26.80 ng/mL (0.02-0.05) H* 09/30/17 10:40 B-Natriuretic Peptide 88 pg/mL (0-100) 09/29/17 14:19 Total Protein 7.5 g/dL (6.4-8.2) 09/29/17 14:19 Albumin 4.2 g/dL (3.4-5.0) 09/29/17 14:19 Triglycerides 303 mg/dL (42-150) H 10/03/17 04:43 Cholesterol 221 mg/dL (120-200) H 10/03/17 04:43 LDL Cholesterol, Calc 114 mg/dL (0-99) H 10/03/17 04:43 HDL Cholesterol 46.0 mg/dL (40.0-60.0) 10/03/17 04:43 Cholesterol/HDL Ratio 4.80 Ratio 10/03/17 04:43 Urine Color Yellow (Yellw/Straw) 09/29/17 18:40 Urine Clarity Hazy (Clear) H 09/29/17 18:40 Urine pH 5.0 (5.0-8.5) 09/29/17 18:40 Ur Specific [place] 1.020 (1.002-1.035) 09/29/17 18:40 Urine Protein 30 mg/dL (Neg-Trace) H 09/29/17 18:40 Urine Glucose (UA) 50 mg/dL (Negative) 09/29/17 18:40 Urine Ketones Trace mg/dL (Negative) 09/29/17 18:40 Urine Occult Blood Negative (Negative) 09/29/17 18:40 Urine Nitrate Negative (Negative) 09/29/17 18:40 Urine Bilirubin Negative (Negative) 09/29/17 18:40 Urine Urobilinogen Less than 2 mg/dL (Less than 2) 09/29/17 18:40 Ur Leukocyte Esterase Negative (Negative) 09/29/17 18:40 Urine RBC Less than 1 /hpf (0-3) 09/29/17 18:40 Urine WBC 2 /hpf (0-5) 09/29/17 18:40 Ur Squamous Epith Cells 1 /hpf (0-5) 09/29/17 18:40 Urine Bacteria Moderate /hpf (None) H 09/29/17 18:40 Hyaline Casts 26 /lpf (0-3) 09/29/17 18:40 Urine Mucus Few /lpf (Occasional) H 09/29/17 18:40 Impressions Abdomen/Bladder Ultrasound 09/29/17 00:00 CONCLUSION: 1. Left renal cyst. 2. Hepatic steatosis. Chest X-Ray 09/29/17 14:11 CONCLUSION: No acute cardiopulmonary disease. Labs on day of discharge: Labs from last 24 hours 10/03/17 10/03/17 10/03/17 12:13 08:17 04:43 WBC RBC Hgb Hct MCV MCH MCHC RDW Plt Count MPV Prelim Diff (Auto) Neut % (Auto) Lymph % (Auto) [place] % (Auto) Eos % (Auto) Baso % (Auto) Neut # (Auto) Lymph # (Auto) [place] # (Auto) Eos # (Auto) Baso # (Auto) WBC Differential Diff Scan Differential Comment APTT Sodium 139 Potassium 4.3 Chloride 108 H Carbon Dioxide 23.4 Anion Gap 8 BUN 24 H Creatinine 1.40 H Estimated GFR 51 L POC Glucose 243 H 201 H Random Glucose 155 H Calcium 8.9 Total Creatine Kinase 143 Triglycerides 303 H Cholesterol 221 H LDL Cholesterol, Calc 114 H HDL Cholesterol 46.0 Cholesterol/HDL Ratio 4.80 10/03/17 10/02/17 10/02/17 04:43 19:41 17:00 WBC 10.0 RBC 4.20 L Hgb 13.1 Hct 38.8 L MCV 92.5 MCH 31.3 MCHC 33.8 RDW 13.2 Plt Count 252 MPV 8.4 Prelim Diff (Auto) Slide review pending Neut % (Auto) 78.5 H Lymph % (Auto) 10.0 [place] % (Auto) 6.4 Eos % (Auto) 4.5 H Baso % (Auto) 0.6 Neut # (Auto) 7.9 H Lymph # (Auto) 1.0 [place] # (Auto) 0.6 Eos # (Auto) 0.5 H Baso # (Auto) 0.1 WBC Differential . Diff Scan Auto diff confirmed Differential Comment . APTT Sodium Potassium Chloride Carbon Dioxide Anion Gap BUN Creatinine Estimated GFR POC Glucose 236 H 179 H Random Glucose Calcium Total Creatine Kinase Triglycerides Cholesterol LDL Cholesterol, Calc HDL Cholesterol Cholesterol/HDL Ratio 10/02/17 10/02/17 14:25 14:25 WBC RBC Hgb Hct MCV MCH MCHC RDW Plt Count MPV Prelim Diff (Auto) Neut % (Auto) Lymph % (Auto) [place] % (Auto) Eos % (Auto) Baso % (Auto) Neut # (Auto) Lymph # (Auto) [place] # (Auto) Eos # (Auto) Baso # (Auto) WBC Differential Diff Scan Differential Comment APTT 35.9 H D Sodium 140 Potassium 4.1 Chloride 106 Carbon Dioxide 28.0 Anion Gap 6 BUN 24 H Creatinine 1.47 H Estimated GFR 48 L POC Glucose Random Glucose 174 H Calcium 9.2 Total Creatine Kinase Triglycerides Cholesterol LDL Cholesterol, Calc HDL Cholesterol Cholesterol/HDL Ratio - Impressions ITS Impressions Abdomen/Bladder Ultrasound 09/29/17 00:00 CONCLUSION: 1. Left renal cyst. 2. Hepatic steatosis. Chest X-Ray 09/29/17 14:11 CONCLUSION: No acute cardiopulmonary disease. Discharge Plan - Discharge Disposition Patient Disposition: 01 Discharge Home - Discharge Condition Condition: Good - Discharge Order Discharge Orders: Discharge Order (Routine); Ordered 10/03/17 Ordered By: Benito Lemos Cardiology Clear for Discharge (Routine); Ordered 10/02/17 Ordered By: Jarrett Mckeon - Discharge Details Anticipated Discharge Date: 09/29/17 - Physicians Team Primary Care Provider: Primary Care Physici,No Attending Provider: Benito Lemos Other Providers: Arjun Mann MD
== END 2017-10-03 14:15 | disposition home or self-care (01) ==
LOC: NEPE 14:01 → NEDA 16:18 → N04 17:48 → NEDA 17:50 → HCIS 10-02 09:57
PROVIDERS: ADMIT Hospitalist; ATTEND Hospitalist
DX: I25.110 Atherosclerotic heart disease of native coronary artery with unstable angina pectoris; I12.9 Hypertensive chronic kidney disease with stage 1 through stage 4 chronic kidney disease, or unspecified chronic kidney disease; I21.4 Non-ST elevation (NSTEMI) myocardial infarction; N17.9 Acute kidney failure, unspecified; Z79.4 Long term (current) use of insulin; I25.810 Atherosclerosis of coronary artery bypass graft(s) without angina pectoris; E78.5 Hyperlipidemia, unspecified; Z68.41 Body mass index [BMI] 40.0-44.9, adult; E11.22 Type 2 diabetes mellitus with diabetic chronic kidney disease; I47.2 Ventricular tachycardia; N18.9 Chronic kidney disease, unspecified; Z79.82 Long term (current) use of aspirin; E66.01 Morbid (severe) obesity due to excess calories